=== PATIENT | female | born 1950 | race African-American/Black ===

== ENCOUNTER 2020-04-22 09:22 | Outpatient (REF) | payer MEDICARE, MEDICAID, SELFPAY ==
[2020-04-22 10:20] LABS: MANUAL DIFF FLAG NO
[2020-04-22 10:41] LABS: Basophils Percent Auto 0.7 % (0-2); Eosinophils Absolute Auto 0.1 X10*3/uL (0.0-0.4); Eosinophils Percent Auto 2.3 % (0-4); Hematocrit 40.6 % (37-47); Imm Gran Abs Auto 0.01 X10*3/uL (0.00-0.03); Imm Gran Pct Auto 0.2 % (0.0-0.4); Lymphocytes Percent Auto 46.4 % (20-40); Mean Corpuscular Hemoglobin 27.4 pg (27.0-33.0); Mean Corpuscular Volume 85.5 fL (80-98); Mean Platelet Volume 10.6 fL (9.4-12.3); Monocytes Absolute Auto 0.5 X10*3/uL (0.1-1.2); Monocytes Percent Auto 11.8 % (2-11); Neutrophils Absolute Auto 1.7 X10*3/uL (2.0-8.3); Neutrophils Percent Auto 38.6 % (45-73); Platelet Count 247 X10*3/uL (160-400); Red Blood Count 4.75 X10*6/uL (4.20-5.50); White Blood Count 4.4 X10*3/uL (4.8-10.8)
[2020-04-22 11:07] LABS: Albumin Level 4.2 g/dL (3.5-5.0); Anion Gap 13 (12-20); Blood Urea Nitrogen 15 mg/dL (9-16); Calcium 9.2 mg/dL (8.4-10.2); Carbon Dioxide 24 mmol/L (22-29); Chloride 107 mmol/L (96-108); Estimated Glomerular Filt Rate 43; Magnesium 1.9 mg/dL (1.6-2.6); Phosphorus 3.4 mg/dL (2.7-4.5); Potassium 4.4 mmol/l (3.3-5.1); Sodium 140 mmol/L (135-145)
[2020-04-22 11:17] LABS: Protein/Creatinine Ratio, Ur 0.05 (<0.2); Total Protein Urine Random 12 mg/dL (<12)
[2020-04-23 19:01] LABS: Calcium (PTHI) 9.7 mg/dL (8.6-10.4); PTHI 42 pg/mL (14-64)
== END 2020-04-22 09:23 | disposition home or self-care (01) ==
LOC: HO.10HDL 09:22
PROVIDERS: Visit Provider Internal Medicine Hypertension Specialist
DX: I12.9 Hypertensive chronic kidney disease with stage 1 through stage 4 chronic kidney disease, or unspecified chronic kidney disease (principal); N18.30 Chronic kidney disease, stage 3 unspecified
CPT/HCPCS: 36415; 80051; 82040; 82310; 82565; 83735; 83970; 84100; 84156; 84520; 85025

== ENCOUNTER 2020-07-06 07:59 | Outpatient (REF) | payer MEDICARE, MEDICAID, OTHER, SELFPAY ==
[2020-07-06 10:57] LABS: Alanine Aminotransferase 17 U/L (0-31); Albumin Level 4.2 g/dL (3.5-5.0); Alkaline Phosphatase 70 U/L (39-117); Anion Gap 15 (12-20); Aspartate Amino Transferase 17 U/L (5-31); Bilirubin Total 0.6 mg/dL (0.0-1.0); Blood Urea Nitrogen 17 mg/dL (9-16); Calcium 9.7 mg/dL (8.4-10.2); Carbon Dioxide 23 mmol/L (22-29); Chloride 105 mmol/L (96-108); Cholesterol 178 mg/dL; Estimated Glomerular Filt Rate 41; Glucose Fasting 101 mg/dL (60-99); HDL Cholesterol 44 mg/dL; LDL Cholesterol Calculated 114 mg/dl; Potassium 4.2 mmol/l (3.3-5.1); Sodium 139 mmol/L (135-145); Total Protein 7.7 g/dL (6.5-8.0); Triglycerides 103 mg/dL
[2020-07-06 11:19] LABS: Vitamin D 25-OH Total 35.4 ng/mL (>30)
== END 2020-07-06 08:00 | disposition home or self-care (01) ==
LOC: HO.10HDL 07:59
PROVIDERS: Visit Provider Internal Medicine
DX: E11.9 Type 2 diabetes mellitus without complications (principal); E55.9 Vitamin D deficiency, unspecified
CPT/HCPCS: 36415; 80053; 80061; 82306

== ENCOUNTER 2020-10-09 10:33 | Emergency (ER) | payer MEDICARE, MEDICAID, SELFPAY ==
--- NOTE | ~2020-10-09 | XR_ITS ---
EXAMINATION: RIGHT ANKLE AND RIGHT TIBIA AND FIBULA CLINICAL INFORMATION: Pain after fall COMPARISON: None TECHNIQUE: AP and lateral views of the right tibia and fibula and 3 views of the right ankle FINDINGS: AP and lateral views of the right tibia and fibula demonstrates a distal lateral malleolus avulsion fracture with distraction of fracture fragments by 2 mm. There is a large amount of associated soft tissue swelling present. No other fracture of the tibia or fibula identified. 3 views of the right ankle again demonstrate the avulsion fracture distal tip of the lateral malleolus with associated soft tissue swelling about the lower leg and ankle. There is sequela of previous injury about the distal medial malleolus. Ankle mortise appears intact however there does appear to be approximately 6 degrees of talar tilt without stress. No widening of the medial joint space is noted. There are calcaneal spurs sites of insertion of Achilles and plantar tendons. XR/XR ankle RT min 3V IMPRESSION: Avulsion fracture distal right lateral malleolus.
--- NOTE | ~2020-10-09 | XR_ITS ---
EXAMINATION: RIGHT ANKLE AND RIGHT TIBIA AND FIBULA CLINICAL INFORMATION: Pain after fall COMPARISON: None TECHNIQUE: AP and lateral views of the right tibia and fibula and 3 views of the right ankle FINDINGS: AP and lateral views of the right tibia and fibula demonstrates a distal lateral malleolus avulsion fracture with distraction of fracture fragments by 2 mm. There is a large amount of associated soft tissue swelling present. No other fracture of the tibia or fibula identified. 3 views of the right ankle again demonstrate the avulsion fracture distal tip of the lateral malleolus with associated soft tissue swelling about the lower leg and ankle. There is sequela of previous injury about the distal medial malleolus. Ankle mortise appears intact however there does appear to be approximately 6 degrees of talar tilt without stress. No widening of the medial joint space is noted. There are calcaneal spurs sites of insertion of Achilles and plantar tendons. XR/XR tibia fibula RT 2V IMPRESSION: Avulsion fracture distal right lateral malleolus.
[2020-10-09 10:42] VITALS: BP 164/95; PULSE 118; RESP 18; TEMP 36.9; O2SAT 97; BMI 31.6
--- NOTE | 2020-10-09 10:47 | ED_ITS ---
HPI - Extremity Injury (Lower) General Chief Complaint: Fall Stated Complaint: fall Time Seen by Provider: 10/09/20 10:44 Source: patient Mode of arrival: wheelchair Limitations: no limitations History of Present Illness HPI Narrative: Mrs. Dubois is a pleasant 70-year-old female she has medical history as noted below she presents via wheelchair with her significant other from triage with complaint of right ankle pain status post slip and fall. States she went out to take the trash out and lost her footing on the last step and injured her right ankle. She denies any prodromal symptoms. No other injuries, no recent illness. She is vaccinated for COVID-19. Did have a small coffee this morning and took her pills otherwise has not ate anything yet. MD complaint: other (Right ankle) Onset (ago): minute(s) Injury: Right: ankle Type of Injury: blunt Place: home Severity: moderate (With movement) Severity scale (1-10): 5 Exacerbating factors: weight bearing Context: direct blow Associated symptoms: swelling Other symptoms: none Treatments prior to arrival: other (Immobilization) Related Data Home Medications Medication Instructions Recorded Confirmed alprazolam 0.25 mg tablet 0.25 mg PO DAILY PRN 07/08/20 10/06/20 amlodipine 10 mg tablet 10 mg PO DAILY 07/08/20 10/06/20 aspirin 81 mg tablet,delayed 81 mg PO DAILY 07/08/20 10/06/20 release cholecalciferol (vitamin D3) 25 25 mcg PO DAILY 07/08/20 10/06/20 mcg (1,000 unit) capsule ezetimibe 10 mg tablet 10 mg PO DAILY 07/08/20 10/06/20 fluticasone propionate 50 2 spray INTRANASAL DAILY 07/08/20 10/06/20 mcg/actuation nasal spray,suspension spironolactone 25 mg tablet 25 mg PO DAILY 07/08/20 10/06/20 Previous Rx's Medication Instructions Recorded pravastatin 80 mg tablet 80 mg PO BEDTIME #90 tab 07/11/20 sennosides 8.6 mg-docusate sodium 1 tab-cap PO BID PRN #60 cap 10/06/20 50 mg capsule Allergies Allergy/AdvReac Type Severity Reaction Status Date / Time atorvastatin [Lipitor] Allergy Unknown Unknown Verified 06/25/20 13:38 lisinopril Allergy Unknown Unknown Verified 06/25/20 13:38 Review of Systems Review of Systems: Constitutional: No Weight loss, No Fever, No Chills, No Night Sweats, No Fatigue, No Malaise ENT/Mouth: No Hearing loss, No Ear Pain, No Nasal Congestion, No Sinus Pain, No Hoarseness, No sore throat, No Rhinorrhea, No Swallowing Difficulty Eyes: No Eye Pain, No Swelling, No Redness, No Foreign Body, No Discharge, No Vision Changes Cardiovascular: No Chest Pain, No SOB, No Dyspnea on Exertion, No Orthopnea, No Edema, No Palpitations Respiratory: No Cough, No Sputum, No Wheezing, No Smoke Exposure, No Dyspnea Gastrointestinal: No Nausea, No Vomiting, No Diarrhea, No Constipation, No abdominal Pain, No Hematochezia, No Melena Genitourinary: No Dysuria, No Urinary Frequency, No Hematuria, No Urinary Incontinence, No Urgency, No Flank Pain, No Urinary Flow Changes, No Hesitancy Musculoskeletal: No joint pain, No Myalgias, No Joint Swelling Skin: No Skin Lesions, No rash Neuro: No Weakness, No Numbness, No Paresthesias, No Loss of Consciousness, No Dizziness, No Headache Psych: No Social Issues Heme/Lymph: No Bruising, No Bleeding,No Lymphadenopathy Endocrine: No Polyuria, No Polydipsia, No Temperature Intolerance Yes all other systems are reviewed and are negative [facility] Past Medical History Medical History Anxiety Chronic kidney disease (CKD) stage G3a/A1, moderately decreased glomerular filtration rate (GFR) between 45-59 mL/min/1.73 square meter and albuminuria creatinine ratio less than 30 mg/g Hypercholesterolemia Hypertension Obesity (BMI 30-39.9) Type 2 diabetes mellitus with hyperglycemia Vitamin D deficiency Surgical History History of cataract surgery History of total hysterectomy Family History Family History (Updated 06/25/20 @ 13:39 by ADRIANA Morocho) Father No problems noted. Mother Diabetes Hypertension Stroke Daughter Liver cancer Social History Social History (Updated 10/06/20 @ 09:38 by Pauline Hendrickson CMA) Alcohol intake: never Smoking Status: Never smoker Use of substances other than those prescribed or required for medical reasons: No Advance Directives: No Advance Directives Information Provided: No Physical Exam Vital Signs: Vital Signs: Last Vital Signs Temp 98.4 F 10/09/20 10:42 Pulse 118 H 10/09/20 10:42 Resp 18 10/09/20 10:42 BP 164/95 H 10/09/20 10:42 Pulse Ox 97 10/09/20 10:42 Body Mass Index 31.6 Reviewed Const: Other: Grimaces only when touched at the right ankle and swelling removed. General: cooperative and healthy appearing; No acute distress or intoxicated appearing Nutritional Appearance: average body habitus Orientation/consciousness: patient oriented x3 HENMT: Head: Yes normal to inspection Ears: hearing grossly normal bilaterally Eyes: General: appearance normal, both eyes and all related structures Visual Mann: normal visual mann by confrontation Neck: Neck: Yes normal visual inspection, No positive Brudzinski's sign, No positive Kernig's sign and No tender Thyroid: Thyroid normal Chest: Chest palpation & inspection: normal inspection of the chest Resp: Effort & Inspection: normal respiratory effort Auscultation: clear to auscultation bilaterally Cardio: Jugular venous distension: no JVD Rhythm: regular rhythm Heart sounds: S1 normal heart sound present and S2 normal heart sound present GI: Inspection: Yes normal to inspection Palpation (GI): Soft to palpation Percussion: Yes normal to percussion Auscultation: normal bowel sounds : General: Yes no CVA tenderness Back/Spine/Pelvis: Back: no CVA tenderness Skin: General skin exam: no rashes or lesions noted Neuro: General: patient oriented x3 Extrem: General: Yes normal to inspection Ankle/foot/toe images: 1. Swelling, minimal deformity. Neurovascular intact. No compound type injury. No laceration or abrasion. Exam limited secondary to the acute injury/pain. Course Course Course Narrative: Ankle sprain with underlying avulsion fracture of the distal right lateral malleolus. Patient will be placed in a posterior short-leg splint crutches and follow-up with orthopedics. Skin is intact otherwise, neurovascularly intact. Feels comfortable plan stable for discharge. Home safety reviewed for proper crutch use. MDM - Extremity Injury (Lower) Differential Diagnosis Differential diagnosis: Likely ankle sprain and strain and ankle fracture; Unlikely acute internal derangement of knee, fracture of femur, fracture of hip and fracture of toe Medical Records Attestation: I reviewed the patient's medical records. Lab Data Attestation: I reviewed the patient's lab results. 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 There is a large amount of associated soft tissue swelling present. No other fracture of the tibia or fibula identified. 3 views of the right ankle again demonstrate the avulsion fracture distal tip of the lateral malleolus with associated soft tissue swelling about the lower leg and ankle. There is sequela of previous injury about the distal medial malleolus. Ankle mortise appears intact however there does appear to be approximately 6 degrees of talar tilt without stress. No widening of the medial joint space is noted. There are calcaneal spurs sites of insertion of Achilles and plantar tendons. XR/XR ankle RT min 3V IMPRESSION: Avulsion fracture distal right lateral malleolus. Dictated By:HEATHER MACARIO V MDSigned By:<Electronically signed by HEATHER MACARIO MD in OV>10/09/20 1232 DD/ 1044TD/TT: Patient Safety Officer: VASYL Discharge Plan Discharge Clinical Impression: Uses crutches Avulsion fracture of lateral malleolus Qualifiers: Encounter type: initial encounter Fracture type: closed Laterality: right Qualified Code(s): S82.61XA - Displaced fracture of lateral malleolus of right fibula, initial encounter for closed fracture Patient Disposition: Home, Self-Care Instructions: Ankle Fracture (ED), Crutch Instructions (ED), Splint Care (ED) Additional Instructions: Rest, ice, compress, elevated Prescriptions: No Action pravastatin 80 mg tablet 80 mg PO BEDTIME Qty: 90 RF: 1 cholecalciferol (vitamin D3) 25 mcg (1,000 unit) capsule 25 mcg PO DAILY RF: 0 fluticasone propionate 50 mcg/actuation spray,suspension 2 spray intranasal DAILY RF: 0 alprazolam 0.25 mg tablet 0.25 mg PO DAILY PRNRF: 0 aspirin [Adult Aspirin Regimen] 81 mg tablet,delayed release (DR/EC) 81 mg PO DAILY RF: 0 spironolactone 25 mg tablet 25 mg PO DAILY RF: 0 amlodipine 10 mg tablet 10 mg PO DAILY RF: 0 ezetimibe [Zetia] 10 mg tablet 10 mg PO DAILY RF: 0 Senna Plus 8.6-50 mg capsule 1 tab-cap PO BID PRN (Reason: constipation) Qty: 60 RF: 6 Referrals: Antonia Srivastava MD [Physician] - 1 week (Avulsion fracture distal right lateral malleolus. )
[2020-10-09] MEDS: Acetaminophen 325 MG TABLET 975 MG PO (11:15)
--- NOTE | 2020-10-09 11:16 | PC.NURSE ---
patient a%0x3, medicated for 9/10 rle pain, awaiting xray will continue to monitor
--- NOTE | 2020-10-09 11:53 | PC.NURSE ---
pt to xray
[2020-10-09 13:21] VITALS: BP 158/88; PULSE 101; RESP 18; TEMP 36.8; O2SAT 97
--- NOTE | 2020-10-09 13:22 | PC.NURSE ---
techs applying splint and teaching use of crutches.
== END 2020-10-09 13:28 | disposition home or self-care (01) ==
PROVIDERS: Emergency Provider Emergency Medicine; PCP Internal Medicine
DX: S82.61XA Displaced fracture of lateral malleolus of right fibula, initial encounter for closed fracture (principal); W01.0XXA Fall on same level from slipping, tripping and stumbling without subsequent striking against object, initial encounter; Y93.E9 Activity, other interior property and clothing maintenance; Y92.019 Unspecified place in single-family (private) house as the place of occurrence of the external cause; Y99.9 Unspecified external cause status
CPT/HCPCS: 29515; 73590; 73610; 99283; 99284

== ENCOUNTER 2020-10-18 06:10 | Outpatient (REF) | payer MEDICARE, MEDICAID, SELFPAY ==
--- NOTE | ~2020-10-18 | XR_ITS ---
EXAMINATION: XR ANKLE, RIGHT CLINICAL INFORMATION: Right ankle pain. COMPARISON: Right ankle 10/09/2020. TECHNIQUE: AP, lateral, and mortise views of the right ankle. FINDINGS: There is a known avulsion fracture tip of the lateral malleolus from 10/09/2020 with moderate lateral malleolar soft tissue swelling which has minimally improved. There is an old medial malleolar fracture with mild soft tissue swelling. The ankle mortise and subtalar joints are normal. There is an moderate-sized calcaneal heel and small retrocalcaneal enthesophytes. There is mild anterior ankle joint effusion. XR/XR ankle RT min 3V IMPRESSION: Recent avulsion fracture tip of lateral malleolus with moderate soft tissue swelling. The soft tissue swelling has slightly improved since 10/06/2020. There is an old avulsion fracture tip of medial malleolus with mild malleolar soft tissue swelling. No change in moderate calcaneal heel and small retrocalcaneal enthesophytes.
== END 2020-10-18 06:11 | disposition home or self-care (01) ==
LOC: HO.HOSX 06:10
PROVIDERS: Visit Provider Physician Assistant
DX: S82.891D Other fracture of right lower leg, subsequent encounter for closed fracture with routine healing (principal)
CPT/HCPCS: 73610; 99202

== ENCOUNTER 2021-01-06 08:07 | Outpatient (REF) | payer MEDICARE, MEDICAID, SELFPAY ==
[2021-01-06 09:19] LABS: Alanine Aminotransferase 10 U/L (0-31); Albumin Level 4.2 g/dL (3.5-5.0); Alkaline Phosphatase 89 U/L (39-117); Anion Gap 14 (12-20); Aspartate Amino Transferase 12 U/L (5-31); Bilirubin Total 0.6 mg/dL (0.0-1.0); Blood Urea Nitrogen 12 mg/dL (9-16); Calcium 9.9 mg/dL (8.4-10.2); Carbon Dioxide 21 mmol/L (22-29); Chloride 108 mmol/L (96-108); Cholesterol 140 mg/dL; Estimated Glomerular Filt Rate 53; Glucose Random 100 mg/dL (60-115); HDL Cholesterol 41 mg/dL; LDL Cholesterol Calculated 80 mg/dl; Potassium 4.3 mmol/L (3.3-5.1); Sodium 139 mmol/L (135-145); Total Protein 7.8 g/dL (6.5-8.0); Triglycerides 97 mg/dL
[2021-01-06 09:45] LABS: Free T4 (Free Thyroxine) 0.87 ng/dL (0.71-1.85); Thyroid Stimulating Hormone 1.72 uIU/mL (0.32-4.0)
== END 2021-01-06 08:08 | disposition home or self-care (01) ==
LOC: HO.LAB 08:07
PROVIDERS: Visit Provider Internal Medicine
DX: E11.65 Type 2 diabetes mellitus with hyperglycemia (principal); E78.00 Pure hypercholesterolemia, unspecified; N18.31 Chronic kidney disease, stage 3a
CPT/HCPCS: 36415; 80053; 80061; 84439; 84443

== ENCOUNTER 2021-01-25 08:14 | Outpatient (REF) | payer MEDICARE, OTHER, SELFPAY ==
--- NOTE | ~2021-01-25 | MM_ITS ---
EXAMINATION: MM SCREENING DIGITAL BREAST TOMOSYNTHESIS, BILATERAL CLINICAL INFORMATION: Screening. Asymptomatic. The lifetime risk of breast cancer based on the Tyrer-Cuzick Model is 6%. COMPARISON: Mammography: 01/20/2020, 01/13/2019, 12/25/2017 TECHNIQUE: Digital breast tomosynthesis is performed in both the craniocaudal and mediolateral oblique views along with computer-aided detection (CAD). Synthesized 2D images are generated from the tomosynthesis. FINDINGS: There are scattered areas of fibroglandular density (ACR BI-RADS breast composition Category b). There are no significant masses, abnormal calcifications, or other abnormalities. There is fine fibronodular parenchymal pattern with a small waxing and waning smooth nodularity as before. There is no interval dominant mass or architectural abnormality. No abnormal calcifications. The axilla and skin contours are unremarkable. No significant changes from prior exam. MM/MM tomosynthesis screening BI IMPRESSION: No mammographic evidence of malignancy. ASSESSMENT: BI-RADS 2: Benign RECOMMENDATION: Routine annual mammography screening. This patient's information was entered into a reminder system with a target due date for their next mammogram.
[2021-01-25 09:45] LABS: Anion Gap 12 (12-20); Blood Urea Nitrogen 12 mg/dL (9-16); Calcium 9.8 mg/dL (8.4-10.2); Carbon Dioxide 23 mmol/L (22-29); Chloride 110 mmol/L (96-108); Estimated Glomerular Filt Rate 52; Potassium 4.2 mmol/L (3.3-5.1); Sodium 141 mmol/L (135-145)
== END 2021-01-25 08:15 | disposition home or self-care (01) ==
LOC: HO.MAMMO 08:14
PROVIDERS: Absent Provider Internal Medicine Hypertension Specialist; PCP Internal Medicine; Visit Provider Internal Medicine
DX: Z12.31 Encounter for screening mammogram for malignant neoplasm of breast (principal); I12.9 Hypertensive chronic kidney disease with stage 1 through stage 4 chronic kidney disease, or unspecified chronic kidney disease; N18.9 Chronic kidney disease, unspecified
CPT/HCPCS: 36415; 77063; 77067; 80051; 82310; 82565; 84520

== ENCOUNTER 2021-12-16 10:32 | Day surgery (SDC) | payer MEDICARE, OTHER, SELFPAY ==
[2021-12-12 16:27] VITALS: BMI 31.9
[2021-12-13 09:20] VITALS: BMI 31.9
--- NOTE | 2021-12-15 09:55 | HO.ANESPROP2 ---
Documented by User: Jimena Arzate NP 12/15/21 09:55 HPI - Anesthesia Eval Consult details Narrative: 71yo F for Colonoscopy PMFSH Active Problems Active Problems: All Active Problems (Updated 08/11/21 @ 10:53 by Kalpana Campos MD) Avulsion fracture of right ankle (Acute) Generalized anxiety disorder (Acute) Constipation (Acute) Hypertension (Acute) Obesity (BMI 30-39.9) (Acute) Hypercholesterolemia (Acute) Chronic kidney disease (CKD) stage G3a/A1, moderately decreased glomerular filtration rate (GFR) between 45-59 mL/min/1.73 square meter and albuminuria creatinine ratio less than 30 mg/g (Acute) Type 2 diabetes mellitus with hyperglycemia (Acute) Past Medical History Medical History (Updated 08/11/21 @ 10:53 by Kalpana Campos MD) Adult general medical exam Ankle pain Avulsion fracture of right ankle Chronic kidney disease (CKD) stage G3a/A1, moderately decreased glomerular filtration rate (GFR) between 45-59 mL/min/1.73 square meter and albuminuria creatinine ratio less than 30 mg/g Hypercholesterolemia Hypertension Obesity (BMI 30-39.9) Type 2 diabetes mellitus with hyperglycemia Vitamin D deficiency Family History Family History Father No problems noted. Mother Diabetes Hypertension Stroke Daughter Liver cancer Surgical History Surgical History (Updated 01/12/21 @ 10:04 by TAI Howe) History of cataract surgery History of colonoscopy History of total hysterectomy Social History Social History (Updated 01/12/21 @ 09:46 by TAI Howe) Housing: Apartment Are you a primary career development associate to a significant other at home: No Do you presently have visiting nurse or other home services: No Alcohol intake: never Patient Tobacco Use Status: Never used Tobacco e-Cigarette/Vaping Use: Never Used Second Hand Smoke Exposure: No Have you been hit, kicked, punched, or otherwise hurt by someone within the past year? If so, by whom?: No Are you DNR?: No Advance Directives: No Advance Directives Information Provided: Yes Advance Directives on File: No Recently lost weight without trying: No Current occupational status: retired Meds Allergies Allergy/AdvReac Type Severity Reaction Status Date / Time atorvastatin [Lipitor] Allergy Unknown Unknown Verified 08/11/21 09:50 lisinopril Allergy Unknown Unknown Verified 08/11/21 09:50 Home Medications Medication Instructions Recorded Confirmed Last Taken Type alprazolam 0.25 mg tablet 0.25 mg PO DAILY PRN Anxiety 07/08/20 12/13/21 Unknown History cholecalciferol (vitamin D3) 25 25 mcg PO DAILY 07/08/20 12/13/21 Unknown History mcg (1,000 unit) capsule fluticasone propionate 50 2 spray intranasal DAILY PRN Nasal 07/08/20 12/13/21 Unknown History mcg/actuation nasal Congestion spray,suspension Exam Exam Date and Time: December 15, 2021 0955 Height,Weight and Vital Signs: Height 5 ft 7 in Weight 92.533 kg Assessment and Plan Assessment Anesthesia Assessment: Chart Reviewed Documented by User: Kim Bernal MD 12/16/21 12:48 [facility] Active Problems Active Problems: All Active Problems (Updated 08/11/21 @ 10:53 by Kalpana Campos MD) Avulsion fracture of right ankle (Acute) Generalized anxiety disorder (Acute) Constipation (Acute) Hypertension (Acute) Obesity (BMI 30-39.9) (Acute) Hypercholesterolemia (Acute) Chronic kidney disease (CKD) stage G3a/A1, moderately decreased glomerular filtration rate (GFR) between 45-59 mL/min/1.73 square meter and albuminuria creatinine ratio less than 30 mg/g (Acute) Type 2 diabetes mellitus with hyperglycemia (Acute) Snores but denies SHAMA. Never had sleep study Past Medical History Medical History (Updated 08/11/21 @ 10:53 by Kalpana Campos MD) Adult general medical exam Ankle pain Avulsion fracture of right ankle Chronic kidney disease (CKD) stage G3a/A1, moderately decreased glomerular filtration rate (GFR) between 45-59 mL/min/1.73 square meter and albuminuria creatinine ratio less than 30 mg/g Hypercholesterolemia Hypertension Obesity (BMI 30-39.9) Type 2 diabetes mellitus with hyperglycemia Vitamin D deficiency Family History Family History Father No problems noted. Mother Diabetes Hypertension Stroke Daughter Liver cancer Family history of problems with anesthesia: No Surgical History Surgical History (Updated 01/12/21 @ 10:04 by TAI Howe) History of cataract surgery History of colonoscopy History of total hysterectomy History of Problems with Anesthesia: No Social History Social History (Updated 01/12/21 @ 09:46 by TAI Howe) Housing: Apartment Are you a primary career development associate to a significant other at home: No Do you presently have visiting nurse or other home services: No Alcohol intake: never Patient Tobacco Use Status: Never used Tobacco e-Cigarette/Vaping Use: Never Used Second Hand Smoke Exposure: No Have you been hit, kicked, punched, or otherwise hurt by someone within the past year? If so, by whom?: No Are you DNR?: No Advance Directives: No Advance Directives Information Provided: Yes Advance Directives on File: No Recently lost weight without trying: No Current occupational status: retired [employer] Allergies Allergy/AdvReac Type Severity Reaction Status Date / Time atorvastatin [Lipitor] Allergy Unknown Unknown Verified 08/11/21 09:50 lisinopril Allergy Unknown Unknown Verified 08/11/21 09:50 Home Medications Medication Instructions Recorded Confirmed Last Taken Type alprazolam 0.25 mg tablet 0.25 mg PO DAILY PRN Anxiety 07/08/20 12/13/21 Unknown History cholecalciferol (vitamin D3) 25 25 mcg PO DAILY 07/08/20 12/13/21 Unknown History mcg (1,000 unit) capsule fluticasone propionate 50 2 spray intranasal DAILY PRN Nasal 07/08/20 12/13/21 Unknown History mcg/actuation nasal Congestion spray,suspension Exam Height,Weight and Vital Signs: Height 5 ft 7 in Weight 92.533 kg Vital Signs Temp Pulse Resp BP Pulse Ox O2 Del Method 12/16/21 12:25 96.7 F L 103 H 16 140/89 H 97 Room Air Pertinent Lab Results Pertinent Lab Results: Lab Results 12/16/21 Range/Units 12:30 POC Glucose 87 (60-115) mg/dL Airway Mallampati Class: III TM Dist: >3cm Neck ROM: Full Partial: Upper Loose/Missing/Broken Teeth: No (No broken or loose per patient) Heart: RRR Lungs: CTAB Assessment and Plan Assessment Anesthesia Assessment: Anesthesia Plan Discussed Final Anesthetic Review Family History of Problems with Anesthesia: No History of Problems with Anesthesia: No NPO: Yes ASA Class: III Final Preanesthetic Review: No Changes in Pt Med Stat, Meds/Allgs Chart Reviewed, Consent Obtained/Reviewed and Anes Risks/Benef Reviewed Patient Risk: Intermediate Procedure Risk: Low Assessment/Block/Sedation in SS: Assess/Block/Sedation-SS Anesthetic Plan Anesthetic Plan: MAC: Disposition: Standard PACU
[2021-12-16 12:25] VITALS: BP 140/89; PULSE 103; RESP 16; TEMP 35.9; O2SAT 97
[2021-12-16] MEDS: Lactated Ringers 1,000 ML 100 ML IVCONT (12:34)
[2021-12-16 12:38] LABS: Glucose, Whole Blood 87 mg/dL (60-115)
--- NOTE | 2021-12-16 12:47 | MHC.SHP ---
Pre-Procedural Eval Section A Date of Service: 12/16/21 The patient is an INPATIENT: No Changes since office visit: No Cold of Flu in the past 2 weeks, No New Medical Problems, No Changes in Medication and No Patient answered all questions The History & Physical has been completed within 30 days and I have reviewed it.: Yes Section B Chief Complaint: screening Allergies: Allergies Allergy/AdvReac Type Severity Reaction Status Date / Time atorvastatin [Lipitor] Allergy Unknown Unknown Verified 08/11/21 09:50 lisinopril Allergy Unknown Unknown Verified 08/11/21 09:50 Plan I have reviewed the history and physical and performed a pertinent physical examination on my patient. No changes have occurred unless specified.
[2021-12-16 13:19] VITALS: BP 124/77; PULSE 128; RESP 16; TEMP 36.5; O2SAT 96
[2021-12-16 13:34] VITALS: BP 130/85; PULSE 88; RESP 18; TEMP 36.6; O2SAT 96
--- NOTE | 2021-12-16 13:47 | P.BOP_ITS ---
Brief Operative Note Date of Service: 12/16/21 Pre-op diagnosis: screening Post-op diagnosis: same Procedure: colonoscopy Surgeon: Ashkan Antunez Anesthesia: MAC Was an Ceramic Design Engineer used for this Procedure?: No Estimated blood loss (mL): 2 Pathology: other Condition: stable Disposition: PACU
--- NOTE | 2021-12-16 22:41 | OP_ITS ---
SURGEON: Ashkan Antunez MD INDICATIONS: Colon cancer screening. PREOPERATIVE DIAGNOSIS: POSTOPERATIVE DIAGNOSIS: PROCEDURE PERFORMED: ESTIMATED BLOOD LOSS: COMPLICATIONS: ANESTHESIA: ASSISTANTS: SPECIMENS: PROCEDURE: Colonoscopy to the cecum with biopsy. MEDICATIONS: Monitored anesthesia care. DESCRIPTION OF PROCEDURE: History and physical performed. The risks and benefits of the procedure were explained to the patient. Informed consent was obtained. The patient was placed in left lateral decubitus position. A digital rectal exam was performed and was found to be normal. The Olympus pediatric video colonoscope was introduced into the rectum and advanced to the cecum without difficulty. The cecum was identified by transillumination, palpation, and identification of the ileocecal valve. Examination was performed. The scope was removed. She tolerated the procedure well and was taken to recovery area in stable condition. FINDINGS: The terminal ileum was not examined. The visualized colonic mucosa was normal. There was some stool coating mucosa limiting sensitivity examination for detection of small polyps. A single polyp measuring less than 5 mm was identified in the right colon. This was removed with a biopsy forceps. No other polyps were identified. There was mild diverticulosis of the sigmoid. Retroflexed examination showed internal hemorrhoids. IMPRESSION: Colon polyp. RECOMMENDATIONS: Follow up the biopsy results. MD NAGA Dailey/TREVOR / [id number]
== END 2021-12-16 14:01 | disposition home or self-care (01) ==
PROVIDERS: PCP Internal Medicine; Visit Provider Internal Medicine Gastroenterology
PROC: 0DJD8ZZ Inspection of Lower Intestinal Tract, Via Natural or Artificial Opening Endoscopic (ICD-10-PCS; CPT 45378; principal; 2021-12-16 12:20)
DX: Z12.11 Encounter for screening for malignant neoplasm of colon (principal); Z86.010 Personal history of colon polyps; D12.2 Benign neoplasm of ascending colon; K57.30 Diverticulosis of large intestine without perforation or abscess without bleeding; K64.8 Other hemorrhoids; K59.01 Slow transit constipation; E78.00 Pure hypercholesterolemia, unspecified; E11.22 Type 2 diabetes mellitus with diabetic chronic kidney disease; I12.9 Hypertensive chronic kidney disease with stage 1 through stage 4 chronic kidney disease, or unspecified chronic kidney disease; N18.31 Chronic kidney disease, stage 3a; Z79.82 Long term (current) use of aspirin; Z79.899 Other long term (current) drug therapy; Z88.8 Allergy status to other drugs, medicaments and biological substances
CPT/HCPCS: 45380; 82947; 88305

== ENCOUNTER 2022-01-26 10:22 | Outpatient (REF) | payer MEDICARE, OTHER, SELFPAY ==
--- NOTE | ~2022-01-26 | MM_ITS ---
EXAMINATION: MM SCREENING DIGITAL BREAST TOMOSYNTHESIS, BILATERAL CLINICAL INFORMATION: Screening. Asymptomatic. The lifetime risk of breast cancer based on the Tyrer-Cuzick Model is 5%. COMPARISON: Mammography: 01/25/2021, 01/20/2020 TECHNIQUE: Digital breast tomosynthesis is performed in both the craniocaudal and mediolateral oblique views along with computer-aided detection (CAD). Synthesized 2D images are generated from the tomosynthesis. FINDINGS: There are scattered areas of fibroglandular density (ACR BI-RADS breast composition Category b). There is fine fibronodular parenchymal pattern similar to prior exams. No architectural abnormality or significant mass. Smooth nodule just under 5 mm central left breast mid depth is stable. There are scattered bilateral predominantly coarse calcifications. The axilla and skin contours are unremarkable. MM/MM tomosynthesis screening BI IMPRESSION: No mammographic evidence of malignancy. ASSESSMENT: BI-RADS 2: Benign RECOMMENDATION: Routine annual mammography screening. This patient's information was entered into a reminder system with a target due date for their next mammogram.
--- NOTE | ~2022-01-26 | MM_ITS ---
EXAMINATION: BONE DENSITOMETRY CLINICAL INDICATION: Asymptomatic menopausal state. COMPARISON: Previous BD dated 08/12/2019 and baseline BD dated 11/12/2015. TECHNIQUE: Using a Q[employer]ure DXA System (software version: 13.1) manufactured by [employer], dual-energy x-ray absorptiometry was performed of the lumbar spine and left hip. The images are of good technical quality. Summary results are attached. FINDINGS: AP SPINE L1-L4: Current: BMD 1.273 g/cm2, Z-score 0.9, T-score 0.8, normal, 3.8% increase from previous, 4.7% increase from baseline (<5% change is not significant). Prior: BMD 1.226 g/cm2. Baseline: BMD 1.216 g/cm2. LEFT FEMUR, NECK: Current: BMD 0.991 g/cm2, Z-score 0.0, T-score -0.3, normal. Prior: BMD 0.961 g/cm2. Baseline: BMD 0.932 g/cm2. LEFT FEMUR, TOTAL: Current: BMD 1.036 g/cm2, Z-score 0.2, T-score 0.2, normal, 2.5% increase from previous, 2.0% increase from baseline (<5% change is not significant). Prior: BMD 1.011 g/cm2. Baseline: BMD 1.016 g/cm2. IDENTIFIED RISK FACTORS: Menopause, left oophorectomy, hysterectomy, history of fracture (adult). HISTORY OF FRACTURE: Ankle. MEDICATIONS: Vitamin D. MM/XR DEXA axial skeleton IMPRESSION: 1. DIAGNOSIS: Normal bone density based on the lowest T-score value of -0.3 in the femoral neck applying World Health Organization criteria. 2. 10-YEAR FRACTURE RISK PREDICTION, FRAX: According to the guidelines, FRAX calculation should only be performed on patients in the osteopenia bone density category. Therefore, FRAX was not performed on this patient. 3. Treatment Recommendations: NOF guidelines recommend consideration for treatment in postmenopausal women and men age 50 and older presenting with the following: -A hip or vertebral (clinical or morphometric) fracture. -T-score less than or equal to -2.5 at the femoral neck or spine after appropriate evaluation to exclude secondary causes. -Low bone mass at the hip or spine and a 10-year fracture probability by FRAX of greater than or equal to 3% for hip fracture or greater than or equal to 20% for major osteoporotic fracture based on the [place] adapted WHO algorithm. 4. Other Recommendations: All treatment decisions require clinical judgment and consideration of individual patient factors, including patient preferences, comorbidities, previous drug use, risk factors not captured in the FRAX model (e.g. frailty, falls, vitamin D deficiency, increased bone turnover, interval significant decline in bone density) and possible under or overestimation of fracture risk by FRAX. FUTURE SCAN RECOMMENDATION: People with diagnosed cases of osteoporosis or at high risk for fracture should have regular bone mineral density tests. For patients eligible for Medicare, routine testing is allowed once every 2 years. The testing frequency can be increased to one year for patients who have rapidly progressing disease, those who are receiving or discontinuing medical therapy to restore bone mass, or have additional risk factors.
== END 2022-01-26 10:23 | disposition home or self-care (01) ==
LOC: HO.MAMMO 10:22
PROVIDERS: PCP Internal Medicine; Visit Provider Internal Medicine
DX: Z12.31 Encounter for screening mammogram for malignant neoplasm of breast (principal); Z78.0 Asymptomatic menopausal state; Z90.721 Acquired absence of ovaries, unilateral; Z90.710 Acquired absence of both cervix and uterus
CPT/HCPCS: 77063; 77067; 77080

== ENCOUNTER 2022-03-14 08:13 | Outpatient (REF) | payer MEDICARE, OTHER, SELFPAY ==
[2022-03-14 08:26] LABS: MANUAL DIFF FLAG NO
[2022-03-14 08:48] LABS: Basophils Percent Auto 0.6 % (0-2); Eosinophils Absolute Auto 0.1 X10*3/uL (0.0-0.4); Hematocrit 40.2 % (37.0-47.0); Hemoglobin 13.1 g/dl (12.0-16.0); Imm Gran Abs Auto 0.01 X10*3/uL (0.00-0.03); Imm Gran Pct Auto 0.2 % (0.0-0.4); Lymphocytes Absolute Auto 2.5 X10*3/uL (1.2-4.9); Lymphocytes Percent Auto 49.1 % (20-40); Mean Corpuscular HGB Conc 32.6 g/dl (31.0-35.0); Mean Corpuscular Hemoglobin 27.4 pg (27.0-33.0); Mean Corpuscular Volume 84.1 fL (80.0-98.0); Mean Platelet Volume 9.9 fL (9.4-12.3); Monocytes Absolute Auto 0.5 X10*3/uL (0.1-1.2); Monocytes Percent Auto 9.6 % (2-11); Neutrophils Percent Auto 38.5 % (45-73); Platelet Count 260 X10*3/uL (160-400); Red Blood Count 4.78 X10*6/uL (4.20-5.50); Red Cell Distribution Width 14.1 % (11.0-16.0); White Blood Count 5.1 X10*3/uL (4.8-10.8)
[2022-03-14 08:55] LABS: Estimated Average Glucose 137 mg/dL; Hemoglobin A1c % 6.4 %
[2022-03-14 09:22] LABS: Creatinine Urine 181.31 mg/dL; Microalbum/Creatinine Ratio Ur 12.6 ug/mg cr
[2022-03-14 09:23] LABS: Alanine Aminotransferase 29 U/L (0-31); Albumin Level 4.2 g/dL (3.5-5.0); Alkaline Phosphatase 84 U/L (39-117); Anion Gap 15 (12-20); Aspartate Amino Transferase 31 U/L (5-31); Bilirubin Total 0.6 mg/dL (0.0-1.0); Blood Urea Nitrogen 15 mg/dL (9-16); Calcium 9.5 mg/dL (8.4-10.2); Carbon Dioxide 24 mmol/L (22-29); Chloride 106 mmol/L (96-108); Cholesterol 173 mg/dL; Estimated Glomerular Filt Rate > 60; Glucose Random 129 mg/dL (60-115); HDL Cholesterol 42 mg/dL; LDL Cholesterol Calculated 109 mg/dl; Potassium 4.4 mmol/L (3.3-5.1); Sodium 141 mmol/L (135-145); Total Protein 7.7 g/dL (6.5-8.0); Triglycerides 112 mg/dL
[2022-03-14 09:30] LABS: Free T4 (Free Thyroxine) 0.93 ng/dL (0.71-1.85); Vitamin D 25-OH Total 36.5 ng/mL (>30)
[2022-03-14 10:06] LABS: Folate 6.9 ng/mL (> or = 4.0); Vitamin B12 421 pg/mL (200-900)
== END 2022-03-14 08:14 | disposition home or self-care (01) ==
LOC: HO.LAB 08:13
PROVIDERS: PCP Internal Medicine; Visit Provider Internal Medicine
DX: E11.65 Type 2 diabetes mellitus with hyperglycemia (principal); E78.00 Pure hypercholesterolemia, unspecified
CPT/HCPCS: 36415; 80053; 80061; 82043; 82306; 82607; 82746; 83036; 84439; 84443; 85025

== ENCOUNTER 2022-07-14 10:07 | Outpatient (REF) | payer MEDICARE, OTHER, SELFPAY ==
[2022-07-14 11:23] LABS: Anion Gap 12 (12-20); Blood Urea Nitrogen 10 mg/dL (9-16); Calcium 9.8 mg/dL (8.4-10.2); Carbon Dioxide 24 mmol/L (22-29); Chloride 108 mmol/L (96-108); Estimated Glomerular Filt Rate > 60; Potassium 3.8 mmol/L (3.3-5.1); Sodium 140 mmol/L (135-145)
== END 2022-07-14 10:08 | disposition home or self-care (01) ==
LOC: HO.10HDL 10:07
PROVIDERS: Visit Provider Internal Medicine Hypertension Specialist
DX: I12.9 Hypertensive chronic kidney disease with stage 1 through stage 4 chronic kidney disease, or unspecified chronic kidney disease (principal); N18.9 Chronic kidney disease, unspecified
CPT/HCPCS: 36415; 80051; 82310; 82565; 84520

== ENCOUNTER 2023-02-02 07:52 | Outpatient (REF) | payer MEDICARE, OTHER, SELFPAY ==
--- NOTE | ~2023-02-02 | MM_ITS ---
EXAMINATION: MM SCREENING DIGITAL BREAST TOMOSYNTHESIS, BILATERAL CLINICAL INFORMATION: Screening. Asymptomatic. COMPARISON: Mammography: This study is compared with prior exams dating back to 2018. TECHNIQUE: Digital breast tomosynthesis is performed in both the craniocaudal and mediolateral oblique views along with computer-aided detection (CAD). Synthesized 2D images are generated from the tomosynthesis. FINDINGS: There are scattered areas of fibroglandular density (ACR BI-RADS breast composition Category b). At the inferior aspect of the right breast, there is an asymmetry for which additional mammographic imaging is advised. In the left breast, there are no significant masses, abnormal calcifications, or other abnormalities. MM/MM tomosynthesis screening BI IMPRESSION: Asymmetry of the right breast warrants additional mammographic imaging. No mammographic signs of malignancy left breast. ASSESSMENT: BI-RADS BI-RADS 0 - Incomplete: Needs additional Imaging. RECOMMENDATION: 1. Additional views of the right breast 2. Targeted ultrasound if warranted after review of the additional views. 3. Radiology department staff will contact the patient for additional imaging. Additional Imaging required This examination should not preclude the clinical evaluation of a suspicious palpable abnormality. This patient's information was entered into a reminder system with a target due date for their next mammogram.
== END 2023-02-02 07:53 | disposition home or self-care (01) ==
LOC: HO.MAMMO 07:52
PROVIDERS: Visit Provider Internal Medicine
DX: Z12.31 Encounter for screening mammogram for malignant neoplasm of breast (principal); E11.65 Type 2 diabetes mellitus with hyperglycemia; E78.00 Pure hypercholesterolemia, unspecified
CPT/HCPCS: 36415; 77063; 77067; 80053; 80061; 82043; 82306; 82607; 82728; 82746; 83036; 84439; 84443; 85025

== ENCOUNTER → 2023-02-02 08:00 | Outpatient (BNV) | payer MEDICARE, MEDICAID, SELFPAY | PROVIDERS: Visit Provider Radiology Diagnostic Radiology | DX: Z12.31 Encounter for screening mammogram for malignant neoplasm of breast (principal) | CPT/HCPCS: 77063; 77067 ==

== ENCOUNTER 2023-02-02 08:30 | Outpatient (REF) | payer MEDICARE, OTHER, SELFPAY ==
[2023-02-02 10:18] LABS: MANUAL DIFF FLAG NO
[2023-02-02 10:23] LABS: Basophils Absolute Auto 0.1 X10*3/uL (0.0-0.2); Basophils Percent Auto 1.5 % (0-2); Eosinophils Absolute Auto 0.1 X10*3/uL (0.0-0.4); Hemoglobin 13.1 g/dl (12.0-16.0); Imm Gran Abs Auto 0.01 X10*3/uL (0.00-0.03); Imm Gran Pct Auto 0.2 % (0.0-0.4); Lymphocytes Absolute Auto 1.9 X10*3/uL (1.2-4.9); Mean Corpuscular Hemoglobin 27.3 pg (27.0-33.0); Mean Corpuscular Volume 85.6 fL (80.0-98.0); Mean Platelet Volume 10.4 fL (9.4-12.3); Monocytes Absolute Auto 0.4 X10*3/uL (0.1-1.2); Monocytes Percent Auto 10.7 % (2-11); Neutrophils Absolute Auto 1.6 x10*3/uL (2.0-8.3); Neutrophils Percent Auto 38.6 % (45-73); Platelet Count 251 X10*3/uL (160-400); Red Blood Count 4.79 X10*6/uL (4.20-5.50); Red Cell Distribution Width 14.1 % (11.0-16.0)
[2023-02-02 10:37] LABS: Estimated Average Glucose 120 mg/dL; Hemoglobin A1c % 5.8 %
[2023-02-02 10:54] LABS: Creatinine Urine 162.34 mg/dL; Microalbum/Creatinine Ratio Ur 17.2 ug/mg cr
[2023-02-02 10:55] LABS: Alanine Aminotransferase 14 U/L (0-31); Albumin Level 4.2 g/dL (3.5-5.0); Alkaline Phosphatase 69 U/L (39-117); Anion Gap 11 (12-20); Aspartate Amino Transferase 16 U/L (5-31); Bilirubin Total 0.5 mg/dL (0.0-1.0); Blood Urea Nitrogen 15 mg/dL (9-16); Calcium 9.7 mg/dL (8.4-10.2); Carbon Dioxide 23 mmol/L (22-29); Chloride 111 mmol/L (96-108); Cholesterol 167 mg/dL; Estimated Glomerular Filt Rate 53; Glucose Random 98 mg/dL (60-115); HDL Cholesterol 41 mg/dL; LDL Cholesterol Calculated 110 mg/dl; Potassium 3.8 mmol/L (3.3-5.1); Sodium 141 mmol/L (135-145); Triglycerides 83 mg/dL
[2023-02-02 11:13] LABS: Ferritin 92 ng/mL (10-250); Free T4 (Free Thyroxine) 0.82 ng/dL (0.71-1.85); Vitamin D 25-OH Total 42.4 ng/mL (>30)
[2023-02-02 11:24] LABS: Folate 6.5 ng/mL (> or = 4.0); Vitamin B12 594 pg/mL (200-900)
== END 2023-02-02 08:31 | disposition home or self-care (01) ==
LOC: HO.10HDL 08:30
PROVIDERS: Visit Provider Internal Medicine
DX: Z13.89 Encounter for screening for other disorder (principal)
CPT/HCPCS: 36415; 80053; 80061; 82043; 82306; 82607; 82728; 82746; 83036; 84439; 84443; 85025

== ENCOUNTER 2023-02-07 14:18 | Outpatient (REF) | payer MEDICARE, OTHER, SELFPAY ==
--- NOTE | ~2023-02-07 | US_ITS ---
EXAMINATION: MM DIAGNOSTIC DIGITAL BREAST TOMOSYNTHESIS, RIGHT US BREAST LIMITED, RIGHT MAMMOGRAPHY: CLINICAL INFORMATION: Follow-up for one view asymmetry inferior right breast seen on screening examination MLO view. COMPARISON: Mammography: 02/02/2023, 01/26/2022, and dating back to 2013. TECHNIQUE: Digital breast tomosynthesis is performed of the right breast in the full-field digital 3-D right mediolateral view, as well as spot compression 3-D right MLO views, both large and small paddle. Computer-aided detection (CAD). Synthesized 2D images are generated from the tomosynthesis. FINDINGS: There are scattered areas of fibroglandular density (ACR BI-RADS breast composition Category b). The 1 view asymmetry on the inferior right breast largely effaces on spot compression views and on the mediolateral view, suggesting overlapping tissue artifact/summation artifact. There is otherwise a stable nodular pattern of parenchymal with underlying right retroareolar duct ectasia, however no suspicious masses, calcifications, or areas of architectural distortion are identified. There are benign vascular calcifications. ULTRASOUND: CLINICAL INFORMATION: Evaluate one view asymmetry inferior right breast seen on screening examination MLO view. COMPARISON: Screening mammography 02/02/2023. No prior ultrasound. TECHNIQUE: Targeted sonographic evaluation of the right breast was performed using a high frequency linear transducer. Selected archived documentation. FINDINGS: RIGHT BREAST: There is a mixture of fatty and fibroglandular tissue. No suspicious mass is seen. There is no pathologic acoustic shadowing. No cystic abnormality noted. US/US breast RT limited mamm only IMPRESSION: No persistent findings suspicious for malignancy. Recommend patient return to routine annual screening mammography. OVERALL ASSESSMENT: Mammography: BI-RADS 2 - Benign Findings Ultrasound: BI-RADS 2 - Benign Findings RECOMMENDATION: 1 year F/U Results were provided to the patient at time of visit by the technologist. This patient's information was entered into a reminder system with a target due date for their next mammogram.
== END 2023-02-07 14:19 | disposition home or self-care (01) ==
LOC: HO.MAMMO 14:18
PROVIDERS: PCP Internal Medicine; Visit Provider Internal Medicine
DX: N64.89 Other specified disorders of breast (principal)
CPT/HCPCS: 76642; 77061; 77065

== ENCOUNTER → 2023-02-07 14:30 | Outpatient (BNV) | payer MEDICARE, MEDICAID, SELFPAY | PROVIDERS: PCP Internal Medicine; Visit Provider Radiology Diagnostic Radiology | DX: R92.8 Other abnormal and inconclusive findings on diagnostic imaging of breast (principal) | CPT/HCPCS: 76642; 77061; 77065; G0279 ==

== ENCOUNTER 2023-03-05 10:33 | Outpatient (AMB) | payer MEDICARE, SELFPAY ==
[2023-03-05 10:34] VITALS: BP 138/78; PULSE 88; O2SAT 97; BMI 30.7
--- NOTE | 2023-03-05 10:34 | A.OFFPC_ITS ---
Vital Signs 03/05/23 10:34 Height 5 ft 7 in Weight 196 lb BMI 30.7 BP 138/78 Blood Pressure Location Lt brachial Position Sitting Pulse 88 Pulse Source Pulse Oximeter Pulse Oximetry (%) 97 Oxygen Delivery Method Room Air Intake Visit Reasons: DM Intake Note: Patient here for a follow up DM Starch Crab Required: No Accompanied by: Self / Same As Patient Allergies atorvastatin [Lipitor] Allergy (Unknown, Verified 03/05/23 10:36) Unknown lisinopril Allergy (Unknown, Verified 03/05/23 10:36) Unknown Tobacco use date assessed: 08/31/22 Fall risk assessment: No Falls in past year Last assessed Fall Risk: 03/05/23 Dental Screening Dental Screen Date: 03/05/23 Did you have a dental visit in the last 12 months?: No Did you have a dental problem in the last 6 months where you did not have access to dental care?: No Was dental information given to patient?: Patient has dentist HPI DM HPI Details 73-year-old obese female with diabetes m ellitus chronic kidney disease hypercholesterolemia hypertension generalized anxiety disorder last seen in August 2022. Patient was advised blood work and is here for follow-up. Colonoscopy up-to-date December 2021 tubular adenoma 5 years, mammograms up-to-date bone density is up-to-date. Patient follows up with Nephrology last seen in June diagnosis of hypertensive chronic kidney disease . [facility] Medical History (Updated 03/05/23 @ 11:16 by Kalpana Campos MD) Adult general medical exam Avulsion fracture of right ankle Ankle pain Hypertension Obesity (BMI 30-39.9) Hypercholesterolemia Chronic kidney disease (CKD) stage G3a/A1, moderately decreased glomerular filtration rate (GFR) between 45-59 mL/min/1.73 square meter and albuminuria creatinine ratio less than 30 mg/g Type 2 diabetes mellitus with hyperglycemia Vitamin D deficiency Surgical History History of colonoscopy History of cataract surgery History of total hysterectomy Family History Father No problems noted. Mother Diabetes Hypertension Stroke Daughter Liver cancer Social History Housing: Apartment Are you a primary ambulatory care coordinator to a significant other at home: No Do you presently have visiting nurse or other home services: No Alcohol intake: never Patient Tobacco Use Status: Never used Tobacco e-Cigarette/Vaping Use: Never Used Second Hand Smoke Exposure: No service: No Current occupational status: retired Cognitive needs: No Hearing needs: No Vision needs: Yes Questionnaire PHQ-9 Over the last 2 weeks, how often have you been bothered by any of the following problems? 1. Little interest or pleasure in doing things: not at all 2. Feeling down, depressed, or hopeless: not at all 3. Trouble falling or staying asleep, or sleeping too much: not at all 4. Feeling tired or having little energy: not at all 5. Poor appetite or overeating: not at all 6. Feeling bad about yourself - or that you are a failure or have let yourself o r your family down: not at all 7. Trouble concentrating on things, such as reading the newspaper or watching television: not at all 8. Moving or speaking so slowly that other people could have noticed. Or the opposite - being so fidgety or restless that you have been moving around a lot more than usual: not at all 9. Thoughts that you would be better off or of hurting yourself in some way: not at all Total score: 0 Depression Screening Interpretation: Negative Source: Developed by Drs. Reji Anaya, Carly Smith, Bandar De La Cruz and colleagues, with an educational inderjit from [employer]. Thrive Questionnaire Date Thrive assessed: 08/31/22 MAME-7 AMB Questionnaire MAME-7 Date MAME - 7 assessed: 03/05/23 Feeling nervous, anxious, or on edge: 0 = Not at all Not being able to stop or control worryin = Not at all Worrying too much about different things: 0 = Not at all Trouble relaxin = Not at all Being so restless that it is hard to sit still: 0 = Not at all Becoming easily annoyed or irritable: 0 = Not at all Feeling afraid as if something awful might happen: 0 = Not at all Total MAME-7 score (0-4 normal; 5-9 mild; 10-14 moderate; 15-21 severe): 0 Source: Developed by Carly Haskins B.W. Luis, Bandar De La Cruz and colleagues, with an educational inderjit from [employer]. Physical exam (Primary Care) Vital Signs: Last Vital Signs Pulse 88 03/05/23 10:34 BP 138/78 03/05/23 10:34 Pulse Ox 97 03/05/23 10:34 Oxygen Delivery Method Room Air 03/05/23 10:34 BMI result Body Mass Index 30.7 Tobacco/Smoking Status: Tobacco use Status Tobacco use date assessed 08/31/22 03/05/23 10:40 Patient Tobacco Use Status Never used Tobacco 03/05/23 10:40 e-Cigarette/Vaping Use Never Used 03/05/23 10:40 PHQ-9: PHQ-9 Score PHQ-9: Total score 0 03/05/23 10:40 Depression Screening Interpretation: Negative Thrive Assessment: Date of Thrive Assessment Date Thrive assessed 08/31/22 03/05/23 10:40 Const General: alert; No acute distress Eyes Conjunctivae: conjunctivae normal Resp Auscultation: clear to auscultation bilaterally Cardio Rate: regular rate Rhythm: regular rhythm GI Inspection: Yes normal to inspection Extrem General: Yes normal to inspection and No edema Assessment and Plan Assessment & Plan (1) Type 2 diabetes mellitus with hyperglycemia: Comment: Dr. Peterson Code(s): E11.65 - Type 2 diabetes mellitus with hyperglycemia Qualifiers: Diabetes mellitus continuous churn buttermaker insulin use: without nursing home use Qualified Code(s): E11.65 - Type 2 diabetes mellitus with hyperglycemia Plan: Decrease the amount of carbohydrate intake, pasta, bread, rice and potatoes are all sugar and that is aside from all the sweet stuff, remember that fruits are good but they are Sweet also. Hemoglobin A1c goal of less than 7.0 patient is diet controlled hemoglobin A1c in January was 5.8 (2) Chronic kidney disease (CKD) stage G3a/A1, moderately decreased glomerular filtration rate (GFR) between 45-59 mL/min/1.73 square meter and albuminuria creatinine ratio less than 30 mg/g: Code(s): N18.31 - Chronic kidney disease, stage 3a Plan: Patient continues to follow-up with Nephrology chronic kidney disease stable (3) Hypercholesterolemia: Code(s): E78.00 - Pure hypercholesterolemia, unspecified Plan: Avoid fried foods, chicken skin, eggs, butter margarine, pastries and meat. Be it pork or beef they have a lot of cholesterol LDL goal of less than 100. Patient is on pravastatin 80 mg once a day with Zetia 10 mg once a day. Patient had a problem with Lipitor (4) Obesity (BMI 30-39.9): Code(s): E66.9 - Obesity, unspecified Plan: Diet and exercise (5) Hypertension: Code(s): I10 - Essential (primary) hypertension Qualifiers: Hypertension type: essential hypertension Qualified Code(s): I10 - Essential (primary) hypertension Plan: Continue with blood pressure medication. Decrease salt intake and exercise patient takes amlodipine 10 mg once a day. (6) Generalized anxiety disorder: Comment: decline counselling 07/2021 Code(s): F41.1 - Generalized anxiety disorder Plan: Continue with alprazolam as needed Orders: Orders Lipid Panel 3 Months E78.00 - Pure hypercholesterolemia, unspecified Comprehensive Met. Panel 3 Months E78.00 - Pure hypercholesterolemia, unspecified Medications: New 2 rosuvastatin 5 mg PO DAILY 30 tabs 3RF E78.00 - Pure hypercholesterolemia, unspecified Discontinued pravastatin Discontinued Reason: Doctor's Order 80 mg PO BEDTIME 90 tabs 2RF E78.00 - Pure hypercholesterolemia, unspecified Coding Level of Care Code Est Pt Level 4 (70127) Diagnoses Type 2 diabetes mellitus with hyperglycemia, without long-term current use of insulin E11.65 Diabetes mellitus nursing home insulin use: without continuous churn buttermaker use Chronic kidney disease (CKD) stage G3a/A1, moderately decreased glomerular filtration rate (GFR) between 45-59 mL/min/1.73 square meter and albuminuria creatinine ratio less than 30 mg/g N18.31 Hypercholesterolemia E78.00 Obesity (BMI 30-39.9) E66.9 Essential hypertension I10 Hypertension type: essential hypertension Generalized anxiety disorder F41.1 Additional Codes PHQ-9 - 74910 - PHQ-9 Billing: ([id number])
== END 2023-03-05 11:17 | disposition home or self-care (01) ==
PROVIDERS: PCP Internal Medicine; Visit Provider Internal Medicine
DX: E11.65 Type 2 diabetes mellitus with hyperglycemia (principal); N18.31 Chronic kidney disease, stage 3a; E66.9 Obesity, unspecified; Z68.30 Body mass index [BMI] 30.0-30.9, adult; I12.9 Hypertensive chronic kidney disease with stage 1 through stage 4 chronic kidney disease, or unspecified chronic kidney disease; E78.00 Pure hypercholesterolemia, unspecified; F41.1 Generalized anxiety disorder
CPT/HCPCS: 99214

== ENCOUNTER 2023-06-19 09:57 | Outpatient (REF) | payer MEDICARE, SELFPAY ==
[2023-06-19 12:00] LABS: Alanine Aminotransferase 12 U/L (0-31); Albumin Level 4.1 g/dL (3.5-5.0); Alkaline Phosphatase 72 U/L (39-117); Anion Gap 12 (12-20); Aspartate Amino Transferase 16 U/L (5-31); Bilirubin Total 0.7 mg/dL (0.0-1.0); Blood Urea Nitrogen 13 mg/dL (9-16); Calcium 9.8 mg/dL (8.4-10.2); Carbon Dioxide 24 mmol/L (22-29); Chloride 109 mmol/L (96-108); Cholesterol 142 mg/dL (<200); Estimated Glomerular Filt Rate 58; Glucose Random 90 mg/dL (60-115); HDL Cholesterol 39 mg/dL (>40); LDL Cholesterol Calculated 80 mg/dL (<100); Sodium 141 mmol/L (135-145); Triglycerides 116 mg/dL (<150)
== END 2023-06-19 09:58 | disposition home or self-care (01) ==
LOC: HO.10HDL 09:57
PROVIDERS: Visit Provider Internal Medicine
DX: E78.00 Pure hypercholesterolemia, unspecified (principal)
CPT/HCPCS: 36415; 80053; 80061

== ENCOUNTER 2023-06-21 10:30 | Outpatient (AMB) | payer MEDICARE, MEDICAID, SELFPAY ==
[2023-06-21 10:46] VITALS: BP 120/88; PULSE 88; O2SAT 99; BMI 30.9
--- NOTE | 2023-06-21 10:46 | MHC.PC.OV ---
Vital Signs 06/21/23 10:46 Height 5 ft 7 in Weight 197 lb 0.4 oz BMI 30.9 BP 120/88 Blood Pressure Location Lt brachial Position Sitting Pulse 88 Pulse Source Pulse Oximeter Pulse Oximetry (%) 99 Oxygen Delivery Method Room Air Intake Visit Reasons: DM , Cholesterol Napper Tender Required: No Allergies atorvastatin [Lipitor] Allergy (Unknown, Verified 06/21/23 10:46) Unknown lisinopril Allergy (Unknown, Verified 06/21/23 10:46) Unknown Tobacco use date assessed: 06/21/23 Fall risk assessment: No Falls in past year Last assessed Fall Risk: 06/21/23 Dental Screening Dental Screen Date: 06/21/23 Did you have a dental visit in the last 12 months?: No Did you have a dental problem in the last 6 months where you did not have access to dental care?: No HPI DM , Cholesterol HPI Details 73-year-old obese female with diabetes mellitus hypercholesterolemia hypertension chronic kidney disease generalized anxiety disorder last seen in February 2023. Patient is up-to-date with colonoscopy December 2021 mammogram and bone density. has been having indicriminate eating. will hold off med [facility] Medical History (Updated 03/05/23 @ 11:16 by Kalpana Campos MD) Adult general medical exam Avulsion fracture of right ankle Ankle pain Hypertension Obesity (BMI 30-39.9) Hypercholesterolemia Chronic kidney disease (CKD) stage G3a/A1, moderately decreased glomerular filtration rate (GFR) between 45-59 mL/min/1.73 square meter and albuminuria creatinine ratio less than 30 mg/g Type 2 diabetes mellitus with hyperglycemia Vitamin D deficiency Surgical History History of colonoscopy History of cataract surgery History of total hysterectomy Family History Father No problems noted. Mother Diabetes Hypertension Stroke Daughter Liver cancer Social History Housing: Apartment Are you a primary rn urgent care to a significant other at home: No Do you presently have visiting nurse or other home services: No Alcohol intake: never Patient Tobacco Use Status: Never used Tobacco e-Cigarette/Vaping Use: Never Used Second Hand Smoke Exposure: No service: No Current occupational status: retired Cognitive needs: No Hearing needs: No Vision needs: Yes Questionnaire PHQ-9 Over the last 2 weeks, how often have you been bothered by any of the following problems? 1. Little interest or pleasure in doing things: not at all 2. Feeling down, depressed, or hopeless: not at all 3. Trouble falling or staying asleep, or sleeping too much: not at all 4. Feeling tired or having little energy: not at all 5. Poor appetite or overeating: not at all 6. Feeling bad about yourself - or that you are a failure or have let yourself or your family down: not at all 7. Trouble concentrating on things, such as reading the newspaper or watching television: not at all 8. Moving or speaking so slowly that other people could have noticed. Or the opposite - being so fidgety or restless that you have been moving around a lot more than usual: not at all 9. Thoughts that you would be better off or of hurting yourself in some way: not at all Total score: 0 Depression Screening Interpretation: Negative Depression Screening Done: Yes Source: Developed by Drs. Reji Anaya, Carly Smith, Bandar De La Cruz and colleagues, with an educational inderjit from [email or web address]. Thrive Questionnaire Date Thrive assessed: 08/31/22 AUDIT C Alcohol Use Questionnaire (AUDIT-C) 1. How often do you have a drink containing alcohol?: Monthly or less 2. How many drinks containing alcohol do you have on a typical day when you are drinking?: 1 or 2 3. How often do you have six or more drinks on one occasion?: Never Total Score: 1 Score Reviewed/Action Taken: No MAME-7 AMB Questionnaire MAME-7 Date MAME - 7 assessed: 06/21/23 Feeling nervous, anxious, or on edge: 0 = Not at all Not being able to stop or control worryin = Not at all Worrying too much about different things: 0 = Not at all Trouble relaxin = Not at all Being so restless that it is hard to sit still: 0 = Not at all Becoming easily annoyed or irritable: 0 = Not at all Feeling afraid as if something awful might happen: 0 = Not at all Total MAME-7 score (0-4 normal; 5-9 mild; 10-14 moderate; 15-21 severe): 0 Source: Developed by Drs. Reji Anaya, Carly Smith, Bandar De La Cruz and colleagues, with an educational inderjit from [email or web address]. Physical exam (Primary Care) Vital Signs: Last Vital Signs Pulse 88 06/21/23 10:46 BP 120/88 06/21/23 10:46 Pulse Ox 99 06/21/23 10:46 Oxygen Delivery Method Room Air 06/21/23 10:46 BMI result Body Mass Index 30.9 Tobacco/Smoking Status: Tobacco use Status Tobacco use date assessed 06/21/23 06/21/23 10:47 Patient Tobacco Use Status Never used Tobacco 06/21/23 10:47 e-Cigarette/Vaping Use Never Used 06/21/23 10:47 PHQ-9: PHQ-9 Score PHQ-9: Total score 0 06/21/23 11:05 Depression Screening Interpretation: Negative Thrive Assessment: Date of Thrive Assessment Date Thrive assessed 08/31/22 06/21/23 10:47 Const General: alert; No acute distress Eyes Conjunctivae: conjunctivae normal Resp Auscultation: clear to auscultation bilaterally Cardio Rate: regular rate Rhythm: regular rhythm GI Inspection: Yes normal to inspection Extrem General: Yes normal to inspection and No edema Results AMB Hemoglobin A1c AMB Hemoglobin A1c 7.2 % Last Edit by ADRIANA Draper on 06/21/23 11:06 Results Reviewed Results Reviewed: Laboratory Last Values Hgb A1c (Clinic) 7.2 % (4.0-6.0) H 06/21/23 10:14 Assessment and Plan Assessment & Plan (1) Type 2 diabetes mellitus with hyperglycemia: Comment: Dr. Peterson Code(s): E11.65 - Type 2 diabetes mellitus with hyperglycemia Qualifiers: Diabetes mellitus fci insulin use: without fci use Qualified Code(s): E11.65 - Type 2 diabetes mellitus with hyperglycemia Plan: Decrease the amount of carbohydrate intake, pasta, bread, rice and potatoes are all sugar and that is aside from all the sweet stuff, remember that fruits are good but they are Sweet also. Hemoglobin A1c goal of less than 7.0 patient is on diet only. Discussed about the elevated AIC - need to eat better and will see on next AIC and if high still will add medication (2) Hypercholesterolemia: Code(s): E78.00 - Pure hypercholesterolemia, unspecified Plan: Avoid fried foods, chicken skin, eggs, butter margarine, pastries and meat. Be it pork or beef they have a lot of cholesterol LDL goal of less than 100 and triglyceride of less than 150. Patient on Zetia and rosuvastatin (3) Hypertension: Code(s): I10 - Essential (primary) hypertension Qualifiers: Hypertension type: essential hypertension Qualified Code(s): I10 - Essential (primary) hypertension Plan: Continue with blood pressure medication. Decrease salt intake and exercise patient takes amlodipine 10 mg once a day and spironolactone (4) Obesity (BMI 30-39.9): Code(s): E66.9 - Obesity, unspecified Plan: Diet and exercise (5) Chronic kidney disease (CKD) stage G3a/A1, moderately decreased glomerular filtration rate (GFR) between 45-59 mL/min/1.73 square meter and albuminuria creatinine ratio less than 30 mg/g: Code(s): N18.31 - Chronic kidney disease, stage 3a Plan: Keep well hydrated avoid NSAIDs (6) Generalized anxiety disorder: Comment: decline counselling 07/2021 Code(s): F41.1 - Generalized anxiety disorder Plan: Continue with present medication as needed Orders: Orders AMB Hemoglobin A1c Today E11.65 - Type 2 diabetes mellitus with hyperglycemia Coding Level of Care Code Est Pt Level 4 (30530) Diagnoses Type 2 diabetes mellitus with hyperglycemia, without long-term current use of insulin E11.65 Diabetes mellitus fci insulin use: without exterminator helper termite use Hypercholesterolemia E78.00 Essential hypertension I10 Hypertension type: essential hypertension Obesity (BMI 30-39.9) E66.9 Chronic kidney disease (CKD) stage G3a/A1, moderately decreased glomerular filtration rate (GFR) between 45-59 mL/min/1.73 square meter and albuminuria creatinine ratio less than 30 mg/g N18.31 Generalized anxiety disorder F41.1 Additional Codes PHQ-9 - 15272 - PHQ-9 Billing: ([id number])
== END 2023-06-21 11:34 | disposition home or self-care (01) ==
PROVIDERS: PCP Internal Medicine; Visit Provider Internal Medicine
DX: E11.65 Type 2 diabetes mellitus with hyperglycemia (principal); N18.31 Chronic kidney disease, stage 3a; Z68.30 Body mass index [BMI] 30.0-30.9, adult; E66.9 Obesity, unspecified; E78.00 Pure hypercholesterolemia, unspecified; I10 Essential (primary) hypertension; F41.1 Generalized anxiety disorder
CPT/HCPCS: 83036; 99214

== ENCOUNTER 2023-07-09 11:29 | Outpatient (AMB) | payer MEDICARE, MEDICAID, SELFPAY ==
--- NOTE | 2023-07-09 11:32 | HO.NEPHOV_ITS ---
HPI HPI Comments History of Present Illness Details 73 year old woman with HTN, obesity and DM with stable renal function Baseline creatinine of 0.9 PFSH Medical History (Updated 03/05/23 @ 11:16 by Kalpana Campos MD) Adult general medical exam Avulsion fracture of right ankle Ankle pain Hypertension Obesity (BMI 30-39.9) Hypercholesterolemia Chronic kidney disease (CKD) stage G3a/A1, moderately decreased glomerular filtration rate (GFR) between 45-59 mL/min/1.73 square meter and albuminuria creatinine ratio less than 30 mg/g Type 2 diabetes mellitus with hyperglycemia Vitamin D deficiency Surgical History History of colonoscopy History of cataract surgery History of total hysterectomy Family History Father No problems noted. Mother Diabetes Hypertension Stroke Daughter Liver cancer Social History Housing: Apartment Are you a primary hospice patient care secretary to a significant other at home: No Do you presently have visiting nurse or other home services: No Alcohol intake: never Patient Tobacco Use Status: Never used Tobacco e-Cigarette/Vaping Use: Never Used Second Hand Smoke Exposure: No service: No Current occupational status: retired Cognitive needs: No Hearing needs: No Vision needs: Yes Vital Signs 07/09/23 11:33 07/09/23 11:44 Height 5 ft 7 in Weight 198 lb 4 oz BMI 31.0 BP 140/84 H 120/70 Blood Pressure Location Lt brachial Lt brachial Position Sitting Sitting Pulse 84 Pulse Source Pulse Oximeter Pulse Oximetry (%) 96 Oxygen Delivery Method Room Air Physical Exam Vital Signs: Last Vital Signs Pulse 84 07/09/23 11:33 BP 140/84 H 07/09/23 11:33 Pulse Ox 96 07/09/23 11:33 Oxygen Delivery Method Room Air 07/09/23 11:33 BMI result Body Mass Index 31.0 Const General: comfortable Nutritional Appearance: well nourished Orientation/consciousness: patient oriented x3 HEENT Head: No normal to inspection Mouth: moist mucous membranes Neck Neck: Yes supple and Yes no JVD Resp Auscultation: clear to auscultation bilaterally, no rales and rub present Cardio Jugular venous distension: no JVD Palpation: no palpable S3 and no palpable S4 Heart sounds: no rubs GI Palpation (GI): Soft to palpation and nontender Percussion: No Fluid wave present General: Yes no CVA tenderness Back/Spine/Pelvis Back: no CVA tenderness Skin General skin exam: no rashes or lesions noted Neuro General: patient oriented x3 Extrem General: Yes no pedal edema and No clubbing Assessment & Plan Assessment & Plan (1) Hypertension: Code(s): I10 - Essential (primary) hypertension Qualifiers: Hypertension type: essential hypertension Qualified Code(s): I10 - Essential (primary) hypertension Plan Elderly woman with HTN, DM and Obesity BP is well controlled Renal function is stable with a creatinine of 0.95 No proteinuria Needs weight loss Continue Spironolactone Avoid nephrotoxins Maintain A1C < 7% no changes were made today Coding Level of Care Code Est Pt Level 4 (84809) Diagnoses Essential hypertension I10 Hypertension type: essential hypertension Results Reviewed Nephrology Results: Hgb 13.1 g/dl (12.0-16.0) 02/02/23 WBC 4.0 X10*3/uL (4.8-10.8) L 02/02/23 Plt Count 251 X10*3/uL (160-400) 02/02/23 Sodium 141 mmol/L (135-145) 06/19/23 Potassium 4.0 mmol/L (3.3-5.1) 06/19/23 Chloride 109 mmol/L (96-108) H 06/19/23 Carbon Dioxide 24 mmol/L (22-29) 06/19/23 BUN 13 mg/dL (9-16) 06/19/23 Creatinine 0.95 mg/dL (0.5-1.4) 06/19/23 Calcium 9.8 mg/dL (8.4-10.2) 06/19/23 Urine Creatinine 162.34 mg/dL 02/02/23
[2023-07-09 11:33] VITALS: BP 140/84; PULSE 84; O2SAT 96; BMI 31.0
[2023-07-09 11:44] VITALS: BP 120/70
== END 2023-07-09 11:47 | disposition home or self-care (01) ==
PROVIDERS: PCP Internal Medicine; Visit Provider Internal Medicine Hypertension Specialist
DX: I10 Essential (primary) hypertension (principal)
CPT/HCPCS: 99214

== ENCOUNTER → 2023-07-09 11:29 | Outpatient (BNVA) | payer MEDICARE, OTHER, SELFPAY | PROVIDERS: PCP Internal Medicine; Visit Provider Internal Medicine Hypertension Specialist | DX: I10 Essential (primary) hypertension (principal) | CPT/HCPCS: 99212 ==

== ENCOUNTER 2023-09-21 09:29 | Outpatient (AMB) | payer MEDICARE, SELFPAY ==
[2023-09-21 09:30] VITALS: BP 134/70; PULSE 79; O2SAT 98; BMI 30.7
--- NOTE | 2023-09-21 09:30 | A.OFFPC_ITS ---
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 Required: No Allergies atorvastatin [Lipitor] Allergy (Unknown, Verified 09/21/23 09:31) Unknown lisinopril Allergy (Unknown, Verified 09/21/23 09:31) Unknown Medication List - Last Reconciled 09/21/23 by Kalpana Campos MD alprazolam 0.25 mg PO DAILY PRN amlodipine 10 mg PO DAILY 90 days aspirin (Adult Low Dose Aspirin) 81 mg PO DAILY cane As directed cholecalciferol (vitamin D3) 25 mcg PO DAILY ezetimibe (Zetia) 10 mg PO DAILY 90 days fluticasone propionate 50 mcg/actuation 2 sprays intranasal DAILY PRN rosuvastatin 5 mg PO DAILY sennosides-docusate sodium 8.6-50 mg (Senna Plus) 1 tab-cap PO BID PRN spironolactone 25 mg PO DAILY 90 days Tobacco use date assessed: 09/21/23 Fall risk assessment: No Falls in past year Last assessed Fall Risk: 09/21/23 Dental Screening Dental Screen Date: 06/21/23 Did you have a dental visit in the last 12 months?: Yes Did you have a dental problem in the last 6 months where you did not have access to dental care?: No Was dental information given to patient?: Patient has dentist HPI DM HPI Details 73-year-old obese female with diabetes m ellitus hypertension hypercholesterolemia chronic kidney disease and generalized anxiety disorder last seen in June 2023. Patient's colonoscopy is up-to-date December 2021 mammogram is up-to-date January 2023 and bone density up-to-date January 2022. Patient follows up with Nephrology seen in June 2023 stable renal function and blood pressure well under control. [facility] Medical History (Updated 09/21/23 @ 09:43 by Kalpana Campos MD) Adult general medical exam Avulsion fracture of right ankle Ankle pain Hypertension Obesity (BMI 30-39.9) Hypercholesterolemia Chronic kidney disease (CKD) stage G3a/A1, moderately decreased glomerular filtration rate (GFR) between 45-59 mL/min/1.73 square meter and albuminuria creatinine ratio less than 30 mg/g Type 2 diabetes mellitus with hyperglycemia Vitamin D deficiency Surgical History History of colonoscopy History of cataract surgery History of total hysterectomy Family History Father No problems noted. Mother Diabetes Hypertension Stroke Daughter Liver cancer Social History Housing: Apartment Are you a primary critical care specialist to a significant other at home: No Do you presently have visiting nurse or other home services: No Alcohol intake: never Patient Tobacco Use Status: Never used Tobacco e-Cigarette/Vaping Use: Never Used Second Hand Smoke Exposure: No service: No Current occupational status: retired Cognitive needs: No Hearing needs: No Vision needs: Yes Questionnaire Thrive Questionnaire Date Thrive assessed: 08/31/22 AUDIT C Alcohol Use Questionnaire (AUDIT-C) 1. How often do you have a drink containing alcohol?: Monthly or less 2. How many drinks containing alcohol do you have on a typical day when you are drinking?: 1 or 2 3. How often do you have six or more drinks on one occasion?: Never Total Score: 1 Score Reviewed/Action Taken: No MAME-7 AMB Questionnaire MAME-7 Date MAME - 7 assessed: 06/21/23 Source: Developed by Drs. Reji Anaya, Carly Smith, Bandar De La Cruz and colleagues, with an educational inderjit from [employer]. Physical exam (Primary Care) Vital Signs: Last Vital Signs Pulse 79 09/21/23 09:30 BP 134/70 09/21/23 09:30 Pulse Ox 98 09/21/23 09:30 Oxygen Delivery Method Room Air 09/21/23 09:30 BMI result Body Mass Index 30.7 Tobacco/Smoking Status: Tobacco use Status Tobacco use date assessed 09/21/23 09/21/23 09:41 Patient Tobacco Use Status Never used Tobacco 09/21/23 09:41 e-Cigarette/Vaping Use Never Used 09/21/23 09:41 Thrive Assessment: Date of Thrive Assessment Date Thrive assessed 08/31/22 09/21/23 09:41 Const General: alert; No acute distress Eyes Conjunctivae: conjunctivae normal Resp Auscultation: clear to auscultation bilaterally Cardio Rate: regular rate Rhythm: regular rhythm GI Inspection: Yes normal to inspection Extrem General: Yes normal to inspection and No edema Results AMB Hemoglobin A1c AMB Hemoglobin A1c 6.1 % Last Edit by ADRIANA Draper on 09/21/23 09:44 Assessment and Plan Assessment & Plan (1) Type 2 diabetes mellitus with hyperglycemia: Comment: Dr. Peterson Code(s): E11.65 - Type 2 diabetes mellitus with hyperglycemia Qualifiers: Diabetes mellitus oysterman insulin use: without oysterman use Qualified Code(s): E11.65 - Type 2 diabetes mellitus with hyperglycemia Plan: Decrease the amount of carbohydrate intake, pasta, bread, rice and potatoes are all sugar and that is aside from all the sweet stuff, remember that fruits are good but they are Sweet also. Hemoglobin A1c goal of less than 7.0. Patient is on diet control last A1c was 7.2. (2) Chronic kidney disease (CKD) stage G3a/A1, moderately decreased glomerular filtration rate (GFR) between 45-59 mL/min/1.73 square meter and albuminuria creatinine ratio less than 30 mg/g: Code(s): N18.31 - Chronic kidney disease, stage 3a Plan: Patient follows up with Nephrology stable continue controlling blood pressure and diabetes (3) Hypercholesterolemia: Code(s): E78.00 - Pure hypercholesterolemia, unspecified Plan: Avoid fried foods, chicken skin, eggs, butter margarine, pastries and meat. Be it pork or beef they have a lot of cholesterol LDL goal of less than 100 and triglyceride of less than 150 on rosuvastatin 5 mg once a day and Zetia 10 mg once a day June 2023 last blood work LDL of 80 (4) Obesity (BMI 30-39.9): Code(s): E66.9 - Obesity, unspecified Plan: Continue with diet and exercise (5) Hypertension: Code(s): I10 - Essential (primary) hypertension Qualifiers: Hypertension type: essential hypertension Qualified Code(s): I10 - Essential (primary) hypertension Plan: Continue with blood pressure medication. Decrease salt intake and exercise patient on spironolactone 25 mg once a day amlodipine 10 mg once a day (6) Generalized anxiety disorder: Comment: decline counselling 07/2021 Code(s): F41.1 - Generalized anxiety disorder Plan: Continue with alprazolam as needed (7) Allergic rhinitis: Code(s): J30.9 - Allergic rhinitis, unspecified Orders: Orders AMB Hemoglobin A1c Today E11.65 - Type 2 diabetes mellitus with hyperglycemia Medications: New fluticasone propionate 50 mcg/actuation administer into each nostril 2 sprays intranasal DAILY PRN 16 grams 4RF Nasal Congestion J30.9 - Allergic rhinitis, unspecified Coding Level of Care Code Tele New Pt Level 3 (84493) Diagnoses Type 2 diabetes mellitus with hyperglycemia, without long-term current use of insulin E11.65 Diabetes mellitus oysterman insulin use: without oysterman use Chronic kidney disease (CKD) stage G3a/A1, moderately decreased glomerular filtration rate (GFR) between 45-59 mL/min/1.73 square meter and albuminuria creatinine ratio less than 30 mg/g N18.31 Hypercholesterolemia E78.00 Obesity (BMI 30-39.9) E66.9 Essential hypertension I10 Hypertension type: essential hypertension Generalized anxiety disorder F41.1 Allergic rhinitis J30.9
== END 2023-09-21 09:57 | disposition home or self-care (01) ==
PROVIDERS: PCP Internal Medicine; Visit Provider Internal Medicine
DX: E11.65 Type 2 diabetes mellitus with hyperglycemia (principal); N18.31 Chronic kidney disease, stage 3a; Z68.30 Body mass index [BMI] 30.0-30.9, adult; E66.9 Obesity, unspecified; E78.00 Pure hypercholesterolemia, unspecified; I10 Essential (primary) hypertension; F41.1 Generalized anxiety disorder; J30.9 Allergic rhinitis, unspecified
CPT/HCPCS: 83036; 99213

== ENCOUNTER 2023-12-03 10:46 | Outpatient (AMB) | payer MEDICARE, MEDICAID, SELFPAY ==
[2023-12-03 10:47] VITALS: BP 124/76; PULSE 88; O2SAT 96; BMI 30.7
--- NOTE | 2023-12-03 10:47 | HO.NEPHOV ---
Vital Signs 12/03/23 10:47 Height 5 ft 7 in Weight 196 lb BMI 30.7 BP 124/76 Blood Pressure Location Rt brachial Position Sitting Pulse 88 Pulse Source Pulse Oximeter Pulse Oximetry (%) 96 Oxygen Delivery Method Room Air Intake Visit Reasons: / November/ Conf Tie Up Worker Required: No Accompanied by: Self / Same As Patient Allergies atorvastatin [Lipitor] Allergy (Unknown, Verified 12/03/23 10:51) Unknown lisinopril Allergy (Unknown, Verified 12/03/23 10:51) Unknown Medication List - Last Reconciled 12/03/23 by Joel Quintana MD alprazolam 0.25 mg PO DAILY PRN amlodipine 10 mg PO DAILY 90 days aspirin (Adult Low Dose Aspirin) 81 mg PO DAILY cane As directed cholecalciferol (vitamin D3) 25 mcg PO DAILY ezetimibe (Zetia) 10 mg PO DAILY 90 days fluticasone propionate 50 mcg/actuation 2 sprays intranasal DAILY PRN rosuvastatin 5 mg PO DAILY sennosides-docusate sodium 8.6-50 mg (Senna Plus) 1 tab-cap PO BID PRN spironolactone 25 mg PO DAILY 90 days HPI Comments Details: 73 year old woman with HTN, obesity and DM with stable renal function Baseline creatinine of 0.9 12/03/2023 Overall she has doing well no new complaints today. She is lost some weight [facility] Medical History (Updated 09/21/23 @ 09:43 by Kalpana Campos MD) Adult general medical exam Avulsion fracture of right ankle Ankle pain Hypertension Obesity (BMI 30-39.9) Hypercholesterolemia Chronic kidney disease (CKD) stage G3a/A1, moderately decreased glomerular filtration rate (GFR) between 45-59 mL/min/1.73 square meter and albuminuria creatinine ratio less than 30 mg/g Type 2 diabetes mellitus with hyperglycemia Vitamin D deficiency Surgical History History of colonoscopy History of cataract surgery History of total hysterectomy Family History Father No problems noted. Mother Diabetes Hypertension Stroke Daughter Liver cancer Social History Housing: Apartment Are you a primary health care marketing specialist to a significant other at home: No Do you presently have visiting nurse or other home services: No Alcohol intake: never Patient Tobacco Use Status: Never used Tobacco e-Cigarette/Vaping Use: Never Used Second Hand Smoke Exposure: No service: No Current occupational status: retired Cognitive needs: No Hearing needs: No Vision needs: Yes Physical Exam Vital Signs: Last Vital Signs Pulse 88 12/03/23 10:47 BP 124/76 12/03/23 10:47 Pulse Ox 96 12/03/23 10:47 Oxygen Delivery Method Room Air 12/03/23 10:47 BMI result Body Mass Index 30.7 Const General: comfortable Nutritional Appearance: well nourished Orientation/consciousness: patient oriented x3 HEENT Head: No normal to inspection Mouth: moist mucous membranes Neck Neck: Yes supple and Yes no JVD Resp Auscultation: clear to auscultation bilaterally, no rales and rub present Cardio Jugular venous distension: no JVD Palpation: no palpable S3 and no palpable S4 Heart sounds: no rubs GI Palpation (GI): Soft to palpation and nontender Percussion: No Fluid wave present General: Yes no CVA tenderness Back/Spine/Pelvis Back: no CVA tenderness Skin General skin exam: no rashes or lesions noted Neuro General: patient oriented x3 Extrem General: Yes no pedal edema and No clubbing Results Reviewed Nephrology Results: Hgb 13.1 g/dl (12.0-16.0) 02/02/23 WBC 4.0 X10*3/uL (4.8-10.8) L 02/02/23 Plt Count 251 X10*3/uL (160-400) 02/02/23 Sodium 141 mmol/L (135-145) 06/19/23 Potassium 4.0 mmol/L (3.3-5.1) 06/19/23 Chloride 109 mmol/L (96-108) H 06/19/23 Carbon Dioxide 24 mmol/L (22-29) 06/19/23 BUN 13 mg/dL (9-16) 06/19/23 Creatinine 0.95 mg/dL (0.5-1.4) 06/19/23 Calcium 9.8 mg/dL (8.4-10.2) 06/19/23 Urine Creatinine 162.34 mg/dL 02/02/23 Assessment & Plan Assessment & Plan (1) Hypertension: Code(s): I10 - Essential (primary) hypertension Category: Medical Qualifiers: Hypertension type: essential hypertension Qualified Code(s): I10 - Essential (primary) hypertension (2) Chronic kidney disease (CKD) stage G3a/A1, moderately decreased glomerular filtration rate (GFR) between 45-59 mL/min/1.73 square meter and albuminuria creatinine ratio less than 30 mg/g: Code(s): N18.31 - Chronic kidney disease, stage 3a Category: Medical Plan Elderly woman with HTN, DM and Obesity BP is well controlled Renal function is stable with a creatinine of 0.95 Repeat labs ordered today No proteinuria Needs weight loss Continue Spironolactone Avoid nephrotoxins Maintain A1C < 7% no changes were made today Orders: Orders Total Protein Urine Random Today I10 - Essential (primary) hypertension, N18.31 - Chronic kidney disease, stage 3a Complete Blood Count no Diff Today I10 - Essential (primary) hypertension, N18.31 - Chronic kidney disease, stage 3a Comprehensive Met. Panel Today I10 - Essential (primary) hypertension, N18.31 - Chronic kidney disease, stage 3a Creatinine Urine Today I10 - Essential (primary) hypertension, N18.31 - Chronic kidney disease, stage 3a UA and rflx microscopic Today I10 - Essential (primary) hypertension, N18.31 - Chronic kidney disease, stage 3a Coding Level of Care Code Est Pt Level 4 (71027) Diagnoses Essential hypertension I10 Hypertension type: essential hypertension Chronic kidney disease (CKD) stage G3a/A1, moderately decreased glomerular filtration rate (GFR) between 45-59 mL/min/1.73 square meter and albuminuria creatinine ratio less than 30 mg/g N18.31
== END 2023-12-03 11:07 | disposition home or self-care (01) ==
PROVIDERS: PCP Internal Medicine; Visit Provider Internal Medicine Hypertension Specialist
DX: I10 Essential (primary) hypertension (principal); N18.31 Chronic kidney disease, stage 3a
CPT/HCPCS: 99214

== ENCOUNTER → 2023-12-03 10:46 | Outpatient (BNVA) | payer MEDICARE, MEDICAID, SELFPAY | PROVIDERS: PCP Internal Medicine; Visit Provider Internal Medicine Hypertension Specialist | DX: I12.9 Hypertensive chronic kidney disease with stage 1 through stage 4 chronic kidney disease, or unspecified chronic kidney disease (principal); N18.31 Chronic kidney disease, stage 3a | CPT/HCPCS: 99212 ==

== ENCOUNTER 2023-12-03 11:11 | Outpatient (REF) | payer MEDICARE, MEDICAID, SELFPAY ==
[2023-12-03 13:21] LABS: Appearance Urine Cloudy; Color Urine Yellow; Glucose Urine UA Negative (Negative); Leukocyte Esterase Urine Negative (Negative); Nitrite Urine Negative (Negative); PH 5.5 (5.0-9.0); Urine Blood Negative (Negative); Urine Ketones Negative (Negative); Urine Protein Negative (Neg-Trace)
[2023-12-03 13:37] LABS: Hematocrit 39.9 % (37.0-47.0); Hemoglobin 13.3 g/dl (12.0-16.0); Mean Corpuscular HGB Conc 33.3 g/dl (31.0-35.0); Mean Corpuscular Hemoglobin 27.9 pg (27.0-33.0); Mean Corpuscular Volume 83.8 fL (80.0-98.0); Mean Platelet Volume 9.9 fL (9.4-12.3); Platelet Count 256 X10*3/uL (160-400); Red Blood Count 4.76 X10*6/uL (4.20-5.50); Red Cell Distribution Width 13.7 % (11.0-16.0); White Blood Count 4.7 X10*3/uL (4.8-10.8)
[2023-12-03 13:51] LABS: Alanine Aminotransferase 14 U/L (0-31); Albumin Level 4.3 g/dL (3.5-5.0); Alkaline Phosphatase 73 U/L (39-117); Anion Gap 12 (12-20); Aspartate Amino Transferase 16 U/L (5-31); Bilirubin Total 0.5 mg/dL (0.0-1.0); Blood Urea Nitrogen 17 mg/dL (9-16); Calcium 10.3 mg/dL (8.4-10.2); Carbon Dioxide 24 mmol/L (22-29); Chloride 107 mmol/L (96-108); Estimated Glomerular Filt Rate 46; Glucose Random 90 mg/dL (60-115); Potassium 4.4 mmol/L (3.3-5.1); Sodium 139 mmol/L (135-145); Total Protein 8.4 g/dL (6.5-8.0)
[2023-12-03 14:16] LABS: Total Protein Urine Random 14 mg/dL (<12)
== END 2023-12-03 11:12 | disposition home or self-care (01) ==
LOC: HO.10HDL 11:11
PROVIDERS: Visit Provider Internal Medicine Hypertension Specialist
DX: I10 Essential (primary) hypertension (principal); N18.31 Chronic kidney disease, stage 3a
CPT/HCPCS: 36415; 80053; 81003; 82570; 84156; 85027

== ENCOUNTER 2024-02-05 09:22 | Outpatient (REF) | payer MEDICARE, SELFPAY ==
--- NOTE | ~2024-02-05 | MM_ITS ---
EXAMINATION: MM SCREENING DIGITAL BREAST TOMOSYNTHESIS, BILATERAL CLINICAL INFORMATION: Screening. Asymptomatic. COMPARISON: Mammography: This study is compared with prior exams dating back to 2020. TECHNIQUE: Digital breast tomosynthesis is performed in both the craniocaudal and mediolateral oblique views along with computer-aided detection (CAD). Synthesized 2D images are generated from the tomosynthesis. FINDINGS: There are scattered areas of fibroglandular density (ACR BI-RADS breast composition Category b). There are no significant masses, abnormal calcifications, or other abnormalities. MM/MM tomosynthesis screening BI IMPRESSION: No mammographic evidence of malignancy. ASSESSMENT: BI-RADS BI-RADS 1 - Negative RECOMMENDATION: Routine annual mammography screening. 1 year F/U This examination should not preclude the clinical evaluation of a suspicious palpable abnormality. This patient's information was entered into a reminder system with a target due date for their next mammogram. Electronically signed by: Loren Brizuela MD 03/04/2024 12:07 PM EDT
== END 2024-02-05 09:23 | disposition home or self-care (01) ==
LOC: HO.MAMMO 09:22
PROVIDERS: PCP Internal Medicine; Visit Provider Internal Medicine
DX: Z12.31 Encounter for screening mammogram for malignant neoplasm of breast (principal)
CPT/HCPCS: 77063; 77067

== ENCOUNTER → 2024-02-05 09:45 | Outpatient (BNV) | payer MEDICARE, SELFPAY | PROVIDERS: PCP Internal Medicine; Visit Provider Radiology Diagnostic Radiology | DX: Z12.31 Encounter for screening mammogram for malignant neoplasm of breast (principal) | CPT/HCPCS: 77063; 77067 ==

== ENCOUNTER 2024-02-06 09:23 | Outpatient (AMB) | payer MEDICARE, SELFPAY ==
[2024-02-06 09:46] VITALS: BP 138/78; PULSE 80; O2SAT 98; BMI 30.4
--- NOTE | 2024-02-06 09:46 | A.OFFPC_ITS ---
Vital Signs 02/06/24 09:46 Height 5 ft 7 in Weight 194 lb BMI 30.4 BP 138/78 Blood Pressure Location Lt brachial Position Sitting Pulse 80 Pulse Source Pulse Oximeter Pulse Oximetry (%) 98 Oxygen Delivery Method Room Air Intake Visit Reasons: DM Allergies atorvastatin [Lipitor] Allergy (Unknown, Verified 02/06/24 09:46) Unknown lisinopril Allergy (Unknown, Verified 02/06/24 09:46) Unknown Tobacco use date assessed: 09/21/23 Fall risk assessment: No Falls in past year Last assessed Fall Risk: 02/06/24 Dental Screening Dental Screen Date: 02/06/24 Did you have a dental visit in the last 12 months?: Yes Did you have a dental problem in the last 6 months where you did not have access to dental care?: No Was dental information given to patient?: Patient has dentist HPI DM HPI Details 73-year-old obese female with controlled diabetes mellitus chronic kidney disease hypercholesterolemia hypertension generalized anxiety disorder last seen in September 2023. Patient is up-to-date with colonoscopy December 2021 due for mammogram this month and bone density.. Review of the notes has been follow-up with Nephrology November 2023 blood pressure is under control with renal function stable.. [facility] Medical History (Updated 09/21/23 @ 09:43 by Kalpana Campos MD) Adult general medical exam Avulsion fracture of right ankle Ankle pain Hypertension Obesity (BMI 30-39.9) Hypercholesterolemia Chronic kidney disease (CKD) stage G3a/A1, moderately decreased glomerular filtration rate (GFR) between 45-59 mL/min/1.73 square meter and albuminuria creatinine ratio less than 30 mg/g Type 2 diabetes mellitus with hyperglycemia Vitamin D deficiency Surgical History History of colonoscopy History of cataract surgery History of total hysterectomy Family History Father No problems noted. Mother Diabetes Hypertension Stroke Daughter Liver cancer Social History Housing: Apartment Are you a primary care director rn to a significant other at home: No Do you presently have visiting nurse or other home services: No Alcohol intake: never Patient Tobacco Use Status: Never used Tobacco Tobacco use type: Cigarette e-Cigarette/Vaping Use: Never Used Second Hand Smoke Exposure: No service: No Current occupational status: retired Cognitive needs: No Hearing needs: No Vision needs: Yes Questionnaire PHQ-9 Over the last 2 weeks, how often have you been bothered by any of the following problems? 1. Little interest or pleasure in doing things: not at all 2. Feeling down, depressed, or hopeless: not at all 3. Trouble falling or staying asleep, or sleeping too much: not at all 4. Feeling tired or having little energy: not at all 5. Poor appetite or overeating: not at all 6. Feeling bad about yourself - or that you are a failure or have let yourself or your family down: not at all 7. Trouble concentrating on things, such as reading the newspaper or watching television: not at all 8. Moving or speaking so slowly that other people could have noticed. Or the opposite - being so fidgety or restless that you have been moving around a lot more than usual: not at all 9. Thoughts that you would be better off or of hurting yourself in some way: not at all Total score: 0 Depression Screening Interpretation: Negative Depression Screening Done: Yes Source: Developed by Drs. Reji Anaya, Carly Smiht, Bandar De La Cruz and colleagues, with an educational inderjit from [employer]. Thrive Questionnaire Date Thrive assessed: 02/06/24 I am a: Patient What is your living situation today?: I have a steady place to live Within the past 12 months, did the food you bought not last and you didn't have the money to get more?: Never true Within the past 12 months, did you worry whether your food would run out before you got money to buy more?: Never true Do you have trouble paying for medicines?: No Do you have trouble getting transportation to medical appointments?: No Do you have trouble paying your heating and electricity bill?: No Do you have trouble taking care of your child, family member or friend?: No Do you have trouble with day-to-day activities such as bathing, preparing meals, shopping, managing finances, etc.?: No Are you currently unemployed and looking for a job?: No Are you interested in more education?: No Currently or been in a relationship where the following occur: No concerns reported THRIVE Score: 0 AUDIT C Alcohol Use Questionnaire (AUDIT-C) 1. How often do you have a drink containing alcohol?: Monthly or less 2. How many drinks containing alcohol do you have on a typical day when you are drinking?: 1 or 2 3. How often do you have six or more drinks on one occasion?: Never Total Score: 1 Score Reviewed/Action Taken: No MAME-7 AMB Questionnaire MAME-7 Date MAME - 7 assessed: 06/21/23 Source: Developed by Drs. Reji Anaya, Carly Smith, Bandar De La Cruz and colleagues, with an educational inderjit from [employer]. Physical exam (Primary Care) Vital Signs: Last Vital Signs Pulse 80 02/06/24 09:46 BP 138/78 02/06/24 09:46 Pulse Ox 98 02/06/24 09:46 Oxygen Delivery Method Room Air 02/06/24 09:46 BMI result Body Mass Index 30.4 Tobacco/Smoking Status: Tobacco use Status Tobacco use date assessed 09/21/23 02/06/24 09:53 Patient Tobacco Use Status Never used Tobacco 02/06/24 09:53 Tobacco use type Cigarette 02/06/24 09:53 e-Cigarette/Vaping Use Never Used 02/06/24 09:53 PHQ-9: PHQ-9 Score PHQ-9: Total score 0 02/06/24 10:03 Depression Screening Interpretation: Negative Thrive Assessment: Date of Thrive Assessment Date Thrive assessed 02/06/24 02/06/24 09:53 Currently or been in a relationship where the following occur: No concerns reported Const General: alert; No acute distress Eyes Conjunctivae: conjunctivae normal Resp Auscultation: clear to auscultation bilaterally Cardio Rate: regular rate Rhythm: regular rhythm GI Inspection: Yes normal to inspection Extrem General: Yes normal to inspection and No edema Results AMB Hemoglobin A1c AMB Hemoglobin A1c 6.2 % Last Edit by Pauline Hendrickson CMA on 02/06/24 10 :02 Immunizations tetanus-diphtheria toxoids-Td 2 Lf unit-2 Lf unit/0.5 mL IM suspension Performing Provider: Kalpana Campos MD [facility] Administered by: ADRIANA Draper on 02/06/24 10:15 Dose Route Admin Location Dispensed Lot Number Expiration Date NDC Varnishing Machine Operator 0.5 mL IM Left Deltoid 0.5 mL [id number] 07/28/24 [id number] [employer] VIS Given Date VIS Provided VIS Publication Date 02/06/24 Single Vaccine 21 Eligibility Eligibility Date Funding Source Not [facility] Eligible 02/06/24 State funds Results Reviewed Results Reviewed: Laboratory Last Values Hgb A1c (Clinic) 6.2 % (4.0-6.0) H 02/06/24 10:02 Assessment and Plan Assessment & Plan (1) Type 2 diabetes mellitus with hyperglycemia: Comment: Dr. Peetrson Code(s): E11.65 - Type 2 diabetes mellitus with hyperglycemia Qualifiers: Diabetes mellitus assisted insulin use: without intermodal owner operator truck driver use Qualified Code(s): E11.65 - Type 2 diabetes mellitus with hyperglycemia Plan: Avoid the foods that causes that usually spicy foods, tomato products, juices, coffee, soda and foods that your sensitive to. After eating do not lie down, allow 3-4 hours before in lie down. And keep the head of bed above 30 degrees to avoid the acid from going up. Hemoglobin A1c goal of less than 7.0. Patient on diet control (2) Chronic kidney disease (CKD) stage G3a/A1, moderately decreased glomerular filtration rate (GFR) between 45-59 mL/min/1.73 square meter and albuminuria creatinine ratio less than 30 mg/g: Code(s): N18.31 - Chronic kidney disease, stage 3a Plan: Keep well hydrated avoid NSAIDs control blood pressure (3) Hypercholesterolemia: Code(s): E78.00 - Pure hypercholesterolemia, unspecified Plan: Avoid fried foods, chicken skin, eggs, butter margarine, pastries and meat. Be it pork or beef they have a lot of cholesterol LDL goal of less than 100 and triglyceride of less than 150 June 2023 last blood work on rosuvastatin 5 mg once a day and Zetia 10 mg once (4) Obesity (BMI 30-39.9): Code(s): E66.9 - Obesity, unspecified Plan: Diet and exercise (5) Hypertension: Code(s): I10 - Essential (primary) hypertension Qualifiers: Hypertension type: essential hypertension Qualified Code(s): I10 - Essential (primary) hypertension Plan: Continue with blood pressure medication. Decrease salt intake and exercise on spironolactone 25 mg once a day amlodipine 10 mg once a day patient is not able to take lisinopril. (6) Generalized anxiety disorder: Comment: decline counselling 07/2021 Code(s): F41.1 - Generalized anxiety disorder Plan: Stable Orders: Orders Comprehensive Met. Panel 5 Months E11.65 - Type 2 diabetes mellitus with hyperglycemia Hemoglobin A1c 5 Months E11.65 - Type 2 diabetes mellitus with hyperglycemia Lipid Panel 5 Months E11.65 - Type 2 diabetes mellitus with hyperglycemia, E78.00 - Pure hypercholesterolemia, unspecified Vitamin B12 and Folate 5 Months E11.65 - Type 2 diabetes mellitus with hyperglycemia Vitamin D 25-OH Total 5 Months E11.65 - Type 2 diabetes mellitus with hyperglycemia AMB Hemoglobin A1c Today Z13.9 - Encounter for screening, unspecified Complete Blood Count Auto Diff 5 Months E11.65 - Type 2 diabetes mellitus with hyperglycemia Free T4 (Free Thyroxine) 5 Months E11.65 - Type 2 diabetes mellitus with hyperglycemia Thyroid Stimulating Hormone 5 Months E11.65 - Type 2 diabetes mellitus with hyperglycemia Creatinine Urine 5 Months E11.65 - Type 2 diabetes mellitus with hyperglycemia Td State Immunization Today Z23 - Encounter for immunization Medications: New tetanus-diphtheria toxoids-Td 0.5 mL IM ONCE 0.5 mL 0RF Z23 - Encounter for immunization Refilled spironolactone 25 mg PO DAILY 90 tabs 2RF 90 days Coding Level of Care Code Est Pt Level 4 (09020) Diagnoses Type 2 diabetes mellitus with hyperglycemia, without long-term current use of insulin E11.65 Diabetes mellitus assisted insulin use: without intermodal owner operator truck driver use Chronic kidney disease (CKD) stage G3a/A1, moderately decreased glomerular filtration rate (GFR) between 45-59 mL/min/1.73 square meter and albuminuria creatinine ratio less than 30 mg/g N18.31 Hypercholesterolemia E78.00 Obesity (BMI 30-39.9) E66.9 Essential hypertension I10 Hypertension type: essential hypertension Generalized anxiety disorder F41.1 Additional Codes PHQ-9 - 66629 - PHQ-9 Billing: ([id number])
== END 2024-02-06 10:15 | disposition home or self-care (01) ==
PROVIDERS: PCP Internal Medicine; Visit Provider Internal Medicine
DX: E11.65 Type 2 diabetes mellitus with hyperglycemia (principal); N18.31 Chronic kidney disease, stage 3a; Z68.30 Body mass index [BMI] 30.0-30.9, adult; Z23 Encounter for immunization; E66.9 Obesity, unspecified; E78.00 Pure hypercholesterolemia, unspecified; I10 Essential (primary) hypertension; F41.1 Generalized anxiety disorder
CPT/HCPCS: 83036; 90471; 90714; 99214

== ENCOUNTER 2024-06-03 09:23 | Outpatient (AMB) | payer MEDICARE, MEDICAID, SELFPAY ==
--- OUTSIDE RECORDS SUMMARY | 2024-06-03 09:26 | XMS_ITS | Patient Health Record ---
Author Organization [facility] Address [address] [place] [address] Care Team Providers Care Multi Spindle Operator Name Role Phone Kalpana Campos MD Primary Care Provider Ashkan Moralez Jr Unavailable ALLERGIES No Known Allergies REASON FOR REFERRAL No Information MEDICATIONS Medication SIG (Take, Route, Frequency, Duration) Notes Start Date End Date Status Sennosides-Docusate Sodium 8.6-50 MG 1 tablet in the evening as needed Orally Once a day for 30 day(s) Active ALPRAZolam 0.25 MG 1 tablet Orally Twic e a day Active MiraLax (colon prep) 17 GM/SCOOP mixed with Gatorade or Crystal Light Orally begin at 5:00 p.m. the day before the procedure for 1 day 11/23/2021 Active Vitamin D3 1000 UNIT 1 capsule Orally On ce a day Active Rosuvastatin Calcium 5 MG 1 tablet Orall y Once a day Active Aspir-81 81 MG 1 tablet Orally Once a day Active Zetia 10 MG 1 tablet Orally Once a day Active Fluticasone Propionate (Inhal) 50 MCG/BLIST 1 puff Inhalation Twice a day Active Cholecalciferol 25 MCG (1000 UT) 1 capsule Orally Once a day for 30 day(s) Active Spironolactone 25 MG 1 tablet Orally Onc e a day Active amLODIPine Besylate 10 MG 1 tablet Orall y Once a day Active IMMUNIZATIONS Vaccine Route Administration Date Status Comme nts Influenza Unknown 03/29/2021 Administered SOCIAL HISTORY Sex Assigned At : Social History Observation Description Sex Assigned At Unknown PROBLEMS Problem Type ICD Code Onset Dates Problem Status W/U Status Risk SNOMED Code Notes Problem Colon cancer screening (Z12.11) Active confirmed 917113359 Problem exterminator (current) use of aspirin (Z79.82) Active confirmed 324917854 Problem Long-term current use of high risk medication other than anticoagulant (Z79.899) Active confirmed 973064054 Problem Slow transit constipation (K59.01) Active confirmed 65658672 Problem Long-term use of aspirin therapy (Z79.82) Active confirmed 951209853 Problem History of adenomatous polyp of colon (Z86.010) Active confirmed History of adenomatous polyp of colon (489017131) PLAN OF TREATMENT Future Test Test Name Order Date COLONOSCOPY 06/29/2016 COLONOSCOPY 11/23/2021 Insurance Providers Payer Name Payer Address Payer Phone Subscriber Number Group Number Insured Name Patient Relationship to Insured Coverage Start Date Coverage End Date MEDICARE OF [place] [address] [place] [id number] JANIS CUETO Self - patient is the insured MEDICAID OF [facility] [address] [place] [phone] [id number] JANIS CUETO Self - patient is the insured MEDICAL (GENERAL) HISTORY Medical History History ICD Code Diabetes mellitus type 2 hypertension elevated cholesterol renal insufficiency colonoscopy 09/15/16, hyperpl astic polyps, and five-year followup due to previous history of tubular adenomas Surgical History Surgery Date(Month/Year)
[2024-06-03 09:40] VITALS: BP 118/72; PULSE 113; O2SAT 94; BMI 30.1
--- NOTE | 2024-06-03 09:40 | HO.NEPHOV_ITS ---
Vital Signs 06/03/24 09:40 Height 5 ft 7 in Weight 192 lb BMI 30.1 BP 118/72 Blood Pressure Location Rt brachial Position Sitting Pulse 113 H Pulse Source Pulse Oximeter Pulse Oximetry (%) 94 Oxygen Delivery Method Room Air Intake Visit Reasons: CKD/ Conf Analytical Tech Required: No Accompanied by: Self / Same As Patient Allergies atorvastatin [Lipitor] Allergy (Unknown, Verified 06/03/24 09:41) Unknown lisinopril Allergy (Unknown, Verified 06/03/24 09:41) Unknown Medication List - Last Reconciled 06/03/24 by Joel Quintana MD alprazolam 0.25 mg PO DAILY PRN amlodipine 10 mg PO DAILY 90 days aspirin (Adult Low Dose Aspirin) 81 mg PO DAILY cane As directed cholecalciferol (vitamin D3) 25 mcg PO DAILY ezetimibe (Zetia) 10 mg PO DAILY 90 days fluticasone propionate 50 mcg/actuation 2 sprays intranasal DAILY PRN rosuvastatin 5 mg PO DAILY sennosides-docusate sodium 8.6-50 mg (Senna Plus) 1 tab-cap PO BID PRN spironolactone 25 mg PO DAILY 90 days HPI Comments Details: 73 year old woman with HTN, obesity and DM with stable renal function Baseline creatinine of 0.9 12/03/2023 Overall she has doing well no new complaints today. She is lost some weight 06/03/24 No new issues Lab work pending [facility] Medical History (Updated 09/21/23 @ 09:43 by Kalpana Campos MD) Adult general medical exam Avulsion fracture of right ankle Ankle pain Hypertension Obesity (BMI 30-39.9) Hypercholesterolemia Chronic kidney disease (CKD) stage G3a/A1, moderately decreased glomerular filtration rate (GFR) between 45-59 mL/min/1.73 square meter and albuminuria creatinine ratio less than 30 mg/g Type 2 diabetes mellitus with hyperglycemia Vitamin D deficiency Surgical History History of colonoscopy History of cataract surgery History of total hysterectomy Family History Father No problems noted. Mother Diabetes Hypertension Stroke Daughter Liver cancer Social History Housing: Apartment Are you a primary day care worker to a significant other at home: No Do you presently have visiting nurse or other home services: No Alcohol intake: never Patient Tobacco Use Status: Never used Tobacco Tobacco use type: Cigarette e-Cigarette/Vaping Use: Never Used Second Hand Smoke Exposure: No service: No Current occupational status: retired Cognitive needs: No Hearing needs: No Vision needs: Yes Physical Exam Vital Signs: Last Vital Signs Pulse 113 H 06/03/24 09:40 BP 118/72 06/03/24 09:40 Pulse Ox 94 06/03/24 09:40 Oxygen Delivery Method Room Air 06/03/24 09:40 BMI result Body Mass Index 30.1 Comfortable Neck supple no JVD. Lungs entry equal no rales. Heart S1-S2 heard no gallop or rub. Abdomen soft nontender. Neuro alert awake oriented. No asterixis. Extremities no edema. Results Reviewed Nephrology Results: Hgb 13.3 g/dl (12.0-16.0) 12/03/23 WBC 4.7 X10*3/uL (4.8-10.8) L 12/03/23 Plt Count 256 X10*3/uL (160-400) 12/03/23 Sodium 139 mmol/L (135-145) 12/03/23 Potassium 4.4 mmol/L (3.3-5.1) 12/03/23 Chloride 107 mmol/L (96-108) 12/03/23 Carbon Dioxide 24 mmol/L (22-29) 12/03/23 BUN 17 mg/dL (9-16) H 12/03/23 Creatinine 1.15 mg/dL (0.5-1.4) 12/03/23 Calcium 10.3 mg/dL (8.4-10.2) H 12/03/23 Urine Protein Negative mg/dL (Neg-Trace) 12/03/23 Urine Creatinine 170.10 mg/dL 12/03/23 Assessment & Plan Assessment & Plan (1) Hypertension: Code(s): I10 - Essential (primary) hypertension Category: Medical Qualifiers: Hypertension type: essential hypertension Qualified Code(s): I10 - Essential (primary) hypertension (2) Chronic kidney disease (CKD) stage G3a/A1, moderately decreased glomerular filtration rate (GFR) between 45-59 mL/min/1.73 square meter and albuminuria creatinine ratio less than 30 mg/g: Code(s): N18.31 - Chronic kidney disease, stage 3a Category: Medical (3) Hypercholesterolemia: Code(s): E78.00 - Pure hypercholesterolemia, unspecified Category: Medical Plan Elderly woman with HTN, DM and Obesity BP is well controlled Renal function is stable with a creatinine of 0.95 Repeat labs ordered today No proteinuria Needs weight loss Continue Spironolactone Avoid nephrotoxins Maintain A1C < 7% no changes were made today Orders: Orders Lipid Panel Today E78.00 - Pure hypercholesterolemia, unspecified, I10 - Essential (primary) hypertension Complete Blood Count no Diff Today E78.00 - Pure hypercholesterolemia, unspecified, I10 - Essential (primary) hypertension Comprehensive Met. Panel Today E78.00 - Pure hypercholesterolemia, unspecified, I10 - Essential (primary) hypertension Coding Level of Care Code Est Pt Level 4 (82175) Diagnoses Essential hypertension I10 Hypertension type: essential hypertension Chronic kidney disease (CKD) stage G3a/A1, moderately decreased glomerular filtration rate (GFR) between 45-59 mL/min/1.73 square meter and albuminuria creatinine ratio less than 30 mg/g N18.31 Hypercholesterolemia E78.00
== END 2024-06-03 09:53 | disposition home or self-care (01) ==
PROVIDERS: PCP Internal Medicine; Visit Provider Internal Medicine Hypertension Specialist
DX: I12.9 Hypertensive chronic kidney disease with stage 1 through stage 4 chronic kidney disease, or unspecified chronic kidney disease (principal); N18.31 Chronic kidney disease, stage 3a; E78.00 Pure hypercholesterolemia, unspecified
CPT/HCPCS: 99214

== ENCOUNTER → 2024-06-03 09:23 | Outpatient (BNVA) | payer MEDICARE, MEDICAID, SELFPAY | PROVIDERS: PCP Internal Medicine; Visit Provider Internal Medicine Hypertension Specialist | DX: I12.9 Hypertensive chronic kidney disease with stage 1 through stage 4 chronic kidney disease, or unspecified chronic kidney disease (principal); E11.65 Type 2 diabetes mellitus with hyperglycemia; N18.31 Chronic kidney disease, stage 3a; E78.00 Pure hypercholesterolemia, unspecified | CPT/HCPCS: 99212 ==

== ENCOUNTER 2024-06-03 09:59 | Outpatient (REF) | payer MEDICARE, MEDICAID, SELFPAY ==
[2024-06-03 11:00] LABS: Hematocrit 40.5 % (37.0-47.0); Hemoglobin 13.3 g/dl (12.0-16.0); Mean Corpuscular HGB Conc 32.8 g/dl (31.0-35.0); Mean Corpuscular Hemoglobin 27.6 pg (27.0-33.0); Mean Platelet Volume 9.6 fL (9.4-12.3); Platelet Count 243 X10*3/uL (160-400); Red Blood Count 4.82 X10*6/uL (4.20-5.50); Red Cell Distribution Width 13.9 % (11.0-16.0)
[2024-06-03 11:11] LABS: Alanine Aminotransferase 17 U/L (0-31); Albumin Level 4.3 g/dL (3.5-5.0); Alkaline Phosphatase 75 U/L (39-117); Anion Gap 10 (12-20); Aspartate Amino Transferase 22 U/L (5-31); Bilirubin Total 0.6 mg/dL (0.0-1.0); Blood Urea Nitrogen 15 mg/dL (9-16); Calcium 9.9 mg/dL (8.4-10.2); Carbon Dioxide 25 mmol/L (22-29); Chloride 107 mmol/L (96-108); Cholesterol 140 mg/dL (<200); Estimated Glomerular Filt Rate 46; Glucose Random 113 mg/dL (60-115); HDL Cholesterol 36 mg/dL (>40); LDL Cholesterol Calculated 86 mg/dL (<100); Sodium 138 mmol/L (135-145); Total Protein 8.3 g/dL (6.5-8.0); Triglycerides 90 mg/dL (<150)
== END 2024-06-03 10:00 | disposition home or self-care (01) ==
LOC: HO.10HDL 09:59
PROVIDERS: Visit Provider Internal Medicine Hypertension Specialist
DX: I10 Essential (primary) hypertension (principal); E78.00 Pure hypercholesterolemia, unspecified
CPT/HCPCS: 36415; 80053; 80061; 85027

== ENCOUNTER 2024-07-17 09:35 | Outpatient (REF) | payer MEDICARE, MEDICAID, SELFPAY ==
[2024-07-17 10:48] LABS: MANUAL DIFF FLAG NO
[2024-07-17 10:50] LABS: Basophils Percent Auto 0.7 % (0-2); Eosinophils Absolute Auto 0.1 X10*3/uL (0.0-0.4); Eosinophils Percent Auto 1.4 % (0-4); Hematocrit 39.7 % (37.0-47.0); Hemoglobin 13.1 g/dl (12.0-16.0); Imm Gran Abs Auto 0.01 X10*3/uL (0.00-0.03); Imm Gran Pct Auto 0.2 % (0.0-0.4); Lymphocytes Absolute Auto 2.2 X10*3/uL (1.2-4.9); Lymphocytes Percent Auto 48.8 % (20-40); Mean Corpuscular Hemoglobin 27.9 pg (27.0-33.0); Mean Corpuscular Volume 84.6 fL (80.0-98.0); Mean Platelet Volume 10.2 fL (9.4-12.3); Monocytes Absolute Auto 0.5 X10*3/uL (0.1-1.2); Monocytes Percent Auto 12.2 % (2-11); Neutrophils Absolute Auto 1.6 x10*3/uL (2.0-8.3); Neutrophils Percent Auto 36.7 % (45-73); Platelet Count 226 X10*3/uL (160-400); Red Blood Count 4.69 X10*6/uL (4.20-5.50); White Blood Count 4.4 X10*3/uL (4.8-10.8)
[2024-07-17 10:59] LABS: Estimated Average Glucose 117 mg/dL; Hemoglobin A1c % 5.7 % (<6.0); Total Hemoglobin (HGBA1C) 3373.4658 umol/L
[2024-07-17 11:08] LABS: Alanine Aminotransferase 13 U/L (0-31); Albumin Level 4.2 g/dL (3.5-5.0); Alkaline Phosphatase 69 U/L (39-117); Anion Gap 9 (12-20); Aspartate Amino Transferase 21 U/L (5-31); Bilirubin Total 0.6 mg/dL (0.0-1.0); Blood Urea Nitrogen 12 mg/dL (9-16); Calcium 9.7 mg/dL (8.4-10.2); Carbon Dioxide 25 mmol/L (22-29); Chloride 111 mmol/L (96-108); Cholesterol 138 mg/dL (<200); Estimated Glomerular Filt Rate > 60; Glucose Random 86 mg/dL (60-115); HDL Cholesterol 41 mg/dL (>40); LDL Cholesterol Calculated 80 mg/dL (<100); Sodium 141 mmol/L (135-145); Total Protein 8.2 g/dL (6.5-8.0); Triglycerides 86 mg/dL (<150)
[2024-07-17 11:21] LABS: Creatinine Urine 287.82 mg/dL
[2024-07-17 11:25] LABS: Free T4 (Free Thyroxine) 0.84 ng/dL (0.71-1.85); Thyroid Stimulating Hormone 1.81 uIU/mL (0.32-4.0); Vitamin D 25-OH Total 28.3 ng/mL (>30)
[2024-07-17 11:37] LABS: Folate 6.1 ng/mL (> or = 4.0); Vitamin B12 451 pg/mL (200-900)
--- OUTSIDE RECORDS SUMMARY | 2024-07-17 12:38 | XMS_ITS | Clinical Summary ---
Author Organization [facility] Address [address] [place] [address] Phone Care Team Providers Care Pension Administrator Name Role Phone Kalpana Campos MD Primary Care Provider [phone] Allergies No known active allergies Medications amLODIPine (NORVASC) 10 MG tablet Take 1 tablet by mouth 1 (one) time each day 3 Active cholecalciferol (VITAMIN D-3) 25 MCG (1000 UT) capsule Take 1 capsule by mouth 1 (one) time each day Active ezetimibe (ZETIA) 10 MG tablet Take 1 tablet by mouth 1 (one) time each day Active fluticasone (FLONASE) 50 MCG/ACT nasal spray Administer 1 spray into each nostril 1 (one) time each day Active pravastatin (PRAVACHOL) 40 MG tablet Take 80 mg by mouth 1 (one) time each day Active spironolactone (ALDACTONE) 25 MG tablet Take 1 tablet by mouth 1 (one) time each day Active SENNA CO by Combination route Active Active Problems Problem Noted Date Diagnosed Date Slow transit constipation 07/17/2022 Screening for malignant neoplasm of colon 2022 Long-term current use of antiplatelet drug 07/17 History of adenomatous polyp of colon 07/17/2022 Chronic kidney disease stage 3 06/03/2021 Hypertensive chronic kidney disease, unspecified, with chronic kidney disease stage I through stage IV, or unspecified 06/03/2021 Immunizations Name Administration Dates Next Due Influenza, Unspecified 03/29/2021 Family History Medical History Relation Comments Hypertension Sibling Relation Status Comments Mother Unknown Sibling Social History Tobacco Use Types Packs/Day Years Used Date Smoking Tobacco: Never Smokeless Tobacco: Never Alcohol Use Standard Drinks/Week Comments Yes 0 (1 standard drink = 0.6 oz pure alcohol) Alcoholic Drinks/day: Occasional social drink Comments Unknown Sex and Gender Information Value Date Recorded Sex Assigned at Not on file Legal Sex Female 5:03 PM EST Gender Identity Not on file Sexual Orientation Not on file Last Filed Vital Signs Vital Sign Reading Time Taken Comments Blood Pressure 127/80 07/17/2022 2:24 PM EST Pulse 86 07/17/2022 2:24 PM EST Temperature - - Respiratory Rate - - Oxygen Saturation 99% 07/17/2022 2:24 PM EST Inhaled Oxygen Concentration - - Weight 91 kg (200 lb 9.6 oz) 07/17/2022 2:24 PM EST Height 162.6 cm (5' 4 ) 05/24/2020 12:00 PM EST Body Mass Index 34.43 05/24/2020 12:00 PM EST Plan of Treatment Health Maintenance Due Date Last Done Comments Breast Cancer Screening 1950 Pneumococcal Vaccine: 65+ Years (1 of 2 - PCV) 1955 Colorectal Cancer Screening: Annual FOBT 1998 Colorectal Cancer Screening: Sigmoidoscopy 1998 Influenza Vaccine (#1) 2024 03/29/2021 Colorectal Cancer Screening: Colonoscopy 12/17/2031 12/16/2021, 12/16/2021 Hepatitis B Vaccine Aged Out No longe r eligible based on patient's age to complete this topic Insurance MEDICARE , [facility] [address] [place] [address] MEDICARE Care Teams Pension Administrator Relationship Specialty Start Date End Date Kalpana Campos MD [address] [place], [place] PCP - General 06/28/20
--- OUTSIDE RECORDS SUMMARY | 2024-07-17 12:38 | XMS_ITS | Patient Health Record ---
Author Organization [facility] Address [address] [place] [address] Care Team Providers Care Independent Driver Name Role Phone Kalpana Campos MD Primary Care Provider Ashkna Moralez Jr Unavailable [phone] ALLERGIES No Known Allergies REASON FOR REFERRAL [...] Problem Colon cancer screening (Z12.11) Active confirmed 752418414 Problem intermediate frame tender (current) use of aspirin (Z79.82) Active confirmed 621135976 Problem Long-term current use of high risk medication other than anticoagulant (Z79.899) Active confirmed 542270441 Problem Slow transit constipation (K59.01) Active confirmed 98332515 Problem Long-term use of aspirin therapy (Z79.82) Active confirmed 991510887 Problem History of adenomatous polyp of colon (Z86.010) Active confirmed History of adenomatous polyp of colon (121189081) PLAN OF TREATMENT Future Test Test Name Order Date COLONOSCOPY 06/29/2016 COLONOSCOPY 11/23/2021 Insurance Providers Payer Name Payer Address Payer Phone Subscriber Number Group Number Insured Name Patient Relationship to Insured Coverage Start Date Coverage End Date MEDICARE OF [place] [address] [place] [id number] JANIS CUETO Self - patient is the insured MEDICAID OF [facility] [address] [place] [phone] [id number] JANIS CUETO Self - patient is the insured MEDICAL (GENERAL) HISTORY Medical History History ICD Code Diabetes mellitus type 2 hypertension elevated cholesterol renal insufficiency colonoscopy 09/15/16, hyperpl astic polyps, and five-year followup due to previous history of tubular adenomas Surgical History Surgery Date(Month/Year)
--- OUTSIDE RECORDS SUMMARY | 2024-07-17 12:38 | XMS_ITS | Clinical Summary ---
Author Organization [employer] Address [address] [place] [address] [address] [place] [address] Care Team Providers Care Psychiatric Registered Nurse Name Role Phone Unavailable Primary Care Provider Unavailabl e Immunizations Name Administration Dates Next Due Influenza High-dose Quadriva lent Preservative Free 03/30/2023 Influenza Quadrivalent Adjuvanted 03/22/2021, Influenza injectable quadriv alent preservative free 03/15/2022 Influenza, High Dose Seasona l, Preservative Free 08/04/2019,06/19/2017,05/18/2016 Influenza, IIV3, injectable 03/29/2021, 5 Influenza, Unspecified 03/29/2021 Pfizer Covid-19 Vaccine 12+ 03/28/2024,0 07/23/2023,10/23/2021,05/21,08/29/2020,08/06/2020 Pfizer Covid-19 Vaccine 12+ Bivalent 07/06/2022 Pfizer Covid-19 Vaccine 12+ danny-sucrose (Henriuqez Cap) 10/23/2021 Pneumococcal Conjugate PCV 13 08/04/2016 Pneumococcal Polysaccharide PPSV23 01/30/2019, RSV Bivalent 03/18/2024 TD (adult), 2 Lf tetanus tox oid, preservative free, adsorbed 02/06/2024 Zoster, Recombinant 04/23/2020,02/22/2018 Social History Tobacco Use Types Packs/Day Years Used Date Smoking Tobacco: Never Assessed Comments Unknown Sex and Gender Information Value Date Recorded Sex Assigned at Female 07/23/2023 9:08 AM EST Legal Sex Female 9:11 AM EST Gender Identity Female 07/23/2023 9:08 AM EST Sexual Orientation Straight 07/23/2023 9: 08 AM EST Plan of Treatment Health Maintenance Due Date Last Done Comments CT Colonography 1949 Colonoscopy 1949 Colorectal Cancer Screening 1949 Depression Screening 1949 FIT DNA/Cologuard 1949 FIT 1949 FOBT 1949 SDOH Screening 1949 Sigmoidoscopy 1949 Alcohol/Substance Use Screening 1961 Tobacco Screening 1961 Hepatitis C Screening 1967 DTaP/Tdap/Td Vaccines (1 - Tdap) 02/07/2024 02/06/2024 Influenza Vaccine (#1) 2024 3, 03/15/2022, 03/29/2021, Additional history exists Pneumococcal Vaccine: 50+ Years Completed 01/30/2019, 11/04/2017, 08/04/2016 Zoster Vaccines Completed 04/23/2020, 02/22/2018 RSV Patients and Patients Aged 60 years or older Completed 03/18/2024 COVID-19 Vaccine Completed 03/28/2024, 10/2023, 07/06/2022, Additional history exists HIB Vaccines Aged Out No longer eligi ble based on patient's age to complete this topic HPV Vaccines Aged Out No longer eligi ble based on patient's age to complete this topic Hepatitis A Vaccines Aged Out No long er eligible based on patient's age to complete this topic Hepatitis B Vaccines Aged Out No long er eligible based on patient's age to complete this topic IPV Vaccines Aged Out No longer eligi ble based on patient's age to complete this topic Meningococcal Vaccine Aged Out No trevin lyndsay eligible based on patient's age to complete this topic RSV under 20 months Aged Out No longe r eligible based on patient's age to complete this topic Rotavirus Vaccines Aged Out No longer eligible based on patient's age to complete this topic Insurance MEDICARE [facility] STANDARD AETNA MEDICARE REPLACEMENT HSN FULL
== END 2024-07-17 09:36 | disposition home or self-care (01) ==
LOC: HO.10HDL 09:35
PROVIDERS: Visit Provider Internal Medicine
DX: E11.65 Type 2 diabetes mellitus with hyperglycemia (principal); E78.00 Pure hypercholesterolemia, unspecified
CPT/HCPCS: 36415; 80053; 80061; 82306; 82570; 82607; 82746; 83036; 84439; 84443; 85025

== ENCOUNTER 2024-07-18 10:36 | Outpatient (AMB) | payer MEDICARE, SELFPAY ==
--- NOTE | 2024-07-18 10:44 | A.OFFVIS_ITS ---
Intake Vital Signs 07/18/24 10:46 Height 5 ft 7 in Weight 191 lb 4 oz BMI 30.0 BP 124/64 Blood Pressure Location Lt brachial Position Sitting Pulse 81 Pulse Source Pulse Oximeter Temp 97.1 F Temp Source Skin Pulse Oximetry (%) 96 Oxygen Delivery Method Room Air Intake Visit Reasons: [facility] Intake Note: Patient is here for an Annual Wellness Visit. Clinical Professor Required: No Animal Maintenance Supervisor: Animal Maintenance Supervisor offered & declined Accompanied by: Self / Same As Patient Allergies atorvastatin [Lipitor] Allergy (Unknown, Verified 07/18/24 10:46) Unknown lisinopril Allergy (Unknown, Verified 07/18/24 10:46) Unknown Medication List - Last Reconciled 07/18/24 by Kalpana Campos MD alprazolam 0.25 mg PO DAILY PRN amlodipine 10 mg PO DAILY 90 days aspirin (Adult Low Dose Aspirin) 81 mg PO DAILY cane As directed cholecalciferol (vitamin D3) 25 mcg PO DAILY ezetimibe (Zetia) 10 mg PO DAILY 90 days rosuvastatin 5 mg PO DAILY sennosides-docusate sodium 8.6-50 mg (Senna Plus) 1 tab-cap PO BID PRN spironolactone 25 mg PO DAILY 90 days HPI SAWV HPI Details 74-year-old obese female with diabetes m ellitus chronic kidney disease hypercholesterolemia hypertension generalized anxiety disorder coming in for an annual well visit last seen in January 2024. Patient's colon test was last done in 01/04/2022 having tubular adenoma, mammogram 02/05/2024. And bone density 02/04/2022. Review of the notes has seen Nephrology in June 03 for hypertension and chronic kidney disease stage IIIA blood pressure under good control renal function is stable advised weight loss continue with spironolactone avoid NSAIDs. Patient is up-to-date with eye exam. 02/05/2024. L ear pain 1 week PFS Medical History (Updated 07/18/24 @ 11:31 by Kalpana Campos MD) Adult general medical exam Avulsion fracture of right ankle Ankle pain Hypertension Obesity (BMI 30-39.9) Hypercholesterolemia Chronic kidney disease (CKD) stage G3a/A1, moderately decreased glomerular filtration rate (GFR) between 45-59 mL/min/1.73 square meter and albuminuria creatinine ratio less than 30 mg/g Type 2 diabetes mellitus with hyperglycemia Vitamin D deficiency Surgical History History of colonoscopy History of cataract surgery History of total hysterectomy Family History Father No problems noted. Mother Diabetes Hypertension Stroke Daughter Liver cancer Social History Housing: Apartment Are you a primary student career development specialist to a significant other at home: No Do you presently have visiting nurse or other home services: No Alcohol intake: never Patient Tobacco Use Status: Never used Tobacco Tobacco use type: Cigarette e-Cigarette/Vaping Use: Never Used Second Hand Smoke Exposure: No service: No Current occupational status: retired Cognitive needs: No Hearing needs: No Vision needs: Yes Questionnaire Medicare Wellness Checkup [age] What gender do you identify with?: female During the past 4 weeks, how much have you been bothered by emotional problems such as feeling anxious, depressed, irritable, sad or downhearted, and blue?: not at all During the past 4 weeks, has your physical & emotional health limited your social activities with family, friends, neighbors, or groups?: not at all During the past 4 weeks, how much bodily pain have you generally had?: very mild pain During the past 4 weeks, was someone available to help you if you needed & wanted help?: no, not at all During the past 4 weeks, what was the hardest physical activity you could do for at least 2 minutes?: moderate Can you get to places out of walking distance without help? (For eg., can you travel alone on buses, taxis or drive your car?): Yes Can you go shopping for groceries or clothes without someone's help?: Yes Can you prepare your own meals?: Yes Can you do your housework without help?: Yes Because of any health problems, do you need the help of another person with your personal care needs such as eating, bathing, dressing or getting around the house?: No Can you handle your own money without help?: Yes During the past 4 weeks, how would you rate your health in general?: excellent During the past 4 weeks how have things been going for you?: very well; could hardly better Are you having difficulties driving your car?: not applicable, I don't use a car Do you always fasten your seat belt when you are in a car?: yes, usually During past 4 weeks, have you been bothered by the following: never: Falling or dizzy when standing up, Sexual problems?, Trouble eating well?, Teeth or denture problems? and Problems using the telephone? and seldom: Tiredness or fatigue? Have you fallen 2 or more times in the past year?: No Are you afraid of falling?: Yes Are you a smoker?: no During the past 4 weeks, how many drinks of wine, beer, or other alcoholic beverages did you have?: 1 drink or less per week Do you exercise for about 20 minutes 3 or more times a week?: no, I usually do not exercise this much Have you been given information to help with the following?: yes: Keeping track of your medications? and no: Hazards in your house that might hurt you? How often do you have trouble taking medicines the way you have been told to take them?: I always take medicine as prescribed How confident are you that you can control & manage most of your health problems?: very confident What is your race?: Black or PHQ-9 Over the last 2 weeks, how often have you been bothered by any of the following problems? 1. Little interest or pleasure in doing things: not at all 2. Feeling down, depressed, or hopeless: not at all 3. Trouble falling or staying asleep, or sleeping too much: not at all 4. Feeling tired or having little energy: not at all 5. Poor appetite or overeating: not at all 6. Feeling bad about yourself - or that you are a failure or have let yourself or your family down: not at all 7. Trouble concentrating on things, such as reading the newspaper or watching television: not at all 8. Moving or speaking so slowly that other people could have noticed. Or the opposite - being so fidgety or restless that you have been moving around a lot more than usual: not at all 9. Thoughts that you would be better off or of hurting yourself in some way: not at all Total score: 0 Depression Screening Interpretation: Negative Depression Screening Done: Yes Source: Developed by Drs. Reji Anaya, Carly Smith, Bandar De La Cruz and colleagues, with an educational inderjit from [email or web address] ([employer]). Thrive Questionnaire Date Thrive assessed: 07/18/24 I am a: Patient What is your living situation today?: I have a steady place to live Within the past 12 months, did the food you bought not last and you didn't have the money to get more?: Never true Within the past 12 months, did you worry whether your food would run out before you got money to buy more?: Never true Do you have trouble paying for medicines?: No Do you have trouble getting transportation to medical appointments?: No Do you have trouble paying your heating and electricity bill?: No Do you have trouble taking care of your child, family member or friend?: No Do you have trouble with day-to-day activities such as bathing, preparing meals, shopping, managing finances, etc.?: No Are you currently unemployed and looking for a job?: No Are you interested in more education?: No Please select the resources that you would like help with: None Currently or been in a relationship where the following occur: No concerns reported THRIVE Score: 0 MAME-7 AMB Questionnaire MAME-7 Date MAME - 7 assessed: 07/18/24 Feeling nervous, anxious, or on edge: 0 = Not at all Not being able to stop or control worryin = Not at all Worrying too much about different things: 0 = Not at all Trouble relaxin = Not at all Being so restless that it is hard to sit still: 0 = Not at all Becoming easily annoyed or irritable: 0 = Not at all Feeling afraid as if something awful might happen: 0 = Not at all Total MAME-7 score (0-4 normal; 5-9 mild; 10-14 moderate; 15-21 severe): 0 Source: Developed by Drs. Reji Anaya, Carly Smith, Bandar De La Cruz and colleagues, with an educational inderjit from [email or web address] ([employer]). AUDIT C Alcohol Use Questionnaire (AUDIT-C) 1. How often do you have a drink containing alcohol?: Monthly or less 2. How many drinks containing alcohol do you have on a typical day when you are drinking?: 1 or 2 Total Score: 1 Review of Systems Const Denies poor appetite and Denies weakness Eyes Denies no additional complaints ENT Reports Normal hearing present, Denies dizziness, Denies nasal congestion, Denies tinnitus and Denies sore throat Card Denies chest pain, Denies syncope, Denies rapid heart rate and Denies dyspnea Resp Denies cough and Denies dyspnea GI Denies change in stool character, Reports constipation, Denies diarrhea, Denies nausea and Denies vomiting Denies urinary frequency, Denies difficulty voiding and Denies dysuria Neuro Reports Normal hearing present, Denies confusion, Denies dizziness, Denies syncope and Denies weakness Psych Denies confusion Physical Exam Vital Signs: Last Vital Signs Temp 97.1 F 07/18/24 10:46 Pulse 81 07/18/24 10:46 BP 124/64 07/18/24 10:46 Pulse Ox 96 07/18/24 10:46 Oxygen Delivery Method Room Air 07/18/24 10:46 BMI result Body Mass Index 30.0 Const General: No confusion Orientation/consciousness: No confusion HEENT Other: impacted cerumen bilateral pedal pulse and pin prick good Head: Yes normocephalic Ears: external ears normal Face and sinus: Yes normal facial exam Mouth: moist mucous membranes Throat: Yes tonsils normal Eyes Conjunctivae: conjunctivae normal Pupils: Equal, round and reactive pupils present and Pupil accommodation reflex normal Direct Ophthalmoscopy: normal light reflex Neck Neck: No lymphadenopathy Thyroid: Thyroid normal Chest Chest palpation & inspection: normal inspection of the chest Resp Effort & Inspection: normal respiratory effort and no audible wheezes Auscultation: clear to auscultation bilaterally, no crackles, no wheezes and lung sounds not diminished Cardio Rate: regular rate Rhythm: regular rhythm Peripheral pulses: radial pulses present and dorsalis pedis present GI Other: declined Palpation (GI): no masses Auscultation: normal bowel sounds and normoactive bowel sounds Rectal Exam - Female: deferred Skin General skin exam: no rashes or lesions noted Rashes: no rashes Neuro General: No confusion Cranial nerves: Yes Equal, round and reactive pupils present and Yes Normal hearing present Cognition (Neuro): normal cognition Gait exam (Neuro): Normal gait present Motor exam (neuro): 5/5 motor strength present throughout Deep tendon reflexes (DTR's): Right brachioradialis reflex intensity grade: 2+, Left brachioradialis reflex intensity grade: 2+, Right patellar reflex intensity grade: 2+ and Left patellar reflex intensity grade: 2+ Extrem General: No edema Office Procedures Flu Questionnaire Does the patient have a severe egg allergy?: No Does the patient have severe life threatening allergies?: No Does the patient have a fever or illness today?: No Has the patient ever had Guillain-[place] Syndrome?: No Has the patient ever had any past reaction to a flu shot?: No Immunizations Fluarix Triv [id number] (PF) 45 mcg (15 mcg x 3)/0.5 mL IM syringe Performing Provider: Kalpana Campos MD [facility] Administered by: ISAIAS Valdivia on 07/18/24 11:39 Dose Route Admin Location Dispensed Lot Number Expiration Date NDC Cleaner Signs 0.5 mL IM Left Deltoid 0.5 mL [id number] 12/15/24 [id number] [employer] VIS Given Date VIS Provided VIS Publication Date 07/18/24 Single Vaccine 21 Eligibility Eligibility Date Funding Source Not [facility] Eligible 07/18/24 Private Assessment & Plan Assessment & Plan (1) Medicare annual wellness visit, subsequent: Code(s): Z00.00 - Encounter for general adult medical examination without abnormal findings Plan: Patient is advised to eat healthy, keep well hydrated, keep active and have adequate sleep. (2) Type 2 diabetes mellitus with hyperglycemia: Comment: Dr. Peterson Code(s): E11.65 - Type 2 diabetes mellitus with hyperglycemia Qualifiers: Diabetes mellitus long-term insulin use: without long-term use Qualified Code(s): E11.65 - Type 2 diabetes mellitus with hyperglycemia Plan: Decrease the amount of carbohydrate intake, pasta, bread, rice and potatoes are all sugar and that is aside from all the sweet stuff, remember that fruits are good but they are Sweet also. Diet controlled (3) Chronic kidney disease (CKD) stage G3a/A1, moderately decreased glomerular filtration rate (GFR) between 45-59 mL/min/1.73 square meter and albuminuria creatinine ratio less than 30 mg/g: Code(s): N18.31 - Chronic kidney disease, stage 3a Plan: Keep well hydrated, avoid NSAIDs (4) Hypercholesterolemia: Code(s): E78.00 - Pure hypercholesterolemia, unspecified Plan: Avoid fried foods, chicken skin, eggs, butter margarine, pastries and meat. Be it pork or beef they have a lot of cholesterol on rosuvastatin 5 once a day (5) Obesity (BMI 30-39.9): Code(s): E66.9 - Obesity, unspecified Plan: Diet and exercise (6) Hypertension: Code(s): I10 - Essential (primary) hypertension Qualifiers: Hypertension type: essential hypertension Qualified Code(s): I10 - Essential (primary) hypertension Plan: Continue with blood pressure medication. Decrease salt intake and exercise (7) Generalized anxiety disorder: Comment: decline counselling 07/2021 Code(s): F41.1 - Generalized anxiety disorder Plan: Stable on alprazolam as needed (8) Impacted cerumen of both ears: Code(s): H61.23 - Impacted cerumen, bilateral Plan: Advised to schedule for irrigation of the ears Orders: Orders Influenza [id number] Immunization Today Z23 - Encounter for immunization Quality Reporting (2019) Depression/Bipolar (159/160/161/177) PHQ-9: Total score: 0 Coding Level of Care Code Medicare Subsequent (G0439) Diagnoses Medicare annual wellness visit, subsequent Z00.00 Type 2 diabetes mellitus with hyperglycemia, without long-term current use of insulin E11.65 Diabetes mellitus termite helper insulin use: without termite helper use Chronic kidney disease (CKD) stage G3a/A1, moderately decreased glomerular filtration rate (GFR) between 45-59 mL/min/1.73 square meter and albuminuria creatinine ratio less than 30 mg/g N18.31 Hypercholesterolemia E78.00 Obesity (BMI 30-39.9) E66.9 Essential hypertension I10 Hypertension type: essential hypertension Generalized anxiety disorder F41.1 Impacted cerumen of both ears H61.23
[2024-07-18 10:46] VITALS: BP 124/64; PULSE 81; TEMP 36.2; O2SAT 96
--- OUTSIDE RECORDS SUMMARY | 2024-07-18 11:19 | XMS_ITS | Clinical Summary ---
Author Organization [facility] Address [address] [place] [address] Phone Care Team Providers Care In Processing Instructor Name Role Phone Kalpana Campos MD Primary Care Provider [phone] Allergies No known active allergies Medications amLODIPine [...] to complete this topic Insurance MEDICARE , [facility] [address] [place] [address] MEDICARE Care Teams In Processing Instructor Relationship Specialty Start Date End Date Kalpana Campos MD [address] [place], [place] PCP - General 06/28/20
--- OUTSIDE RECORDS SUMMARY | 2024-07-18 11:19 | XMS_ITS | Clinical Summary ---
Author Organization [employer] Address [address] [place] [address] [address] [place] [address] Care Team Providers Care Photographic Laboratory Supervisor Name Role Phone Unavailable Primary Care Provider [...] Bivalent 07/06/2022 Pfizer Covid-19 Vaccine 12+ danny-sucrose (Henriquez Cap) 10/23/2021 Pneumococcal Conjugate PCV 13 08/04/2016 [...] age to complete this topic Insurance MEDICARE [facility] STANDARD AETNA MEDICARE REPLACEMENT HSN FULL
== END 2024-07-18 11:40 | disposition home or self-care (01) ==
PROVIDERS: PCP Internal Medicine; Visit Provider Internal Medicine
DX: Z00.00 Encounter for general adult medical examination without abnormal findings (principal); I12.9 Hypertensive chronic kidney disease with stage 1 through stage 4 chronic kidney disease, or unspecified chronic kidney disease; E11.65 Type 2 diabetes mellitus with hyperglycemia; N18.31 Chronic kidney disease, stage 3a; Z68.30 Body mass index [BMI] 30.0-30.9, adult; E66.9 Obesity, unspecified; E78.00 Pure hypercholesterolemia, unspecified; F41.1 Generalized anxiety disorder; H61.23 Impacted cerumen, bilateral; Z23 Encounter for immunization

== ENCOUNTER → 2024-07-18 10:36 | Outpatient (BNVA) | payer MEDICARE, SELFPAY | PROVIDERS: PCP Internal Medicine; Visit Provider Internal Medicine | DX: Z00.00 Encounter for general adult medical examination without abnormal findings (principal); Z23 Encounter for immunization; E11.65 Type 2 diabetes mellitus with hyperglycemia; E78.00 Pure hypercholesterolemia, unspecified; E66.9 Obesity, unspecified; F41.1 Generalized anxiety disorder; I12.9 Hypertensive chronic kidney disease with stage 1 through stage 4 chronic kidney disease, or unspecified chronic kidney disease; N18.31 Chronic kidney disease, stage 3a; H61.23 Impacted cerumen, bilateral | CPT/HCPCS: 90471; 90656 ==

== ENCOUNTER 2024-08-01 11:19 | Outpatient (AMB) | payer MEDICARE, SELFPAY ==
[2024-08-01 11:20] VITALS: BP 130/70; PULSE 96; O2SAT 96; BMI 30.1
--- NOTE | 2024-08-01 11:20 | MHC.PC.OV ---
Vital Signs 08/01/24 11:20 Height 5 ft 7 in Weight 192 lb BMI 30.1 BP 130/70 Blood Pressure Location Lt brachial Position Sitting Pulse 96 Pulse Source Pulse Oximeter Pulse Oximetry (%) 96 Oxygen Delivery Method Room Air Intake Visit Reasons: ear irrigation Allergies atorvastatin [Lipitor] Allergy (Unknown, Verified 08/01/24 11:23) Unknown lisinopril Allergy (Unknown, Verified 08/01/24 11:23) Unknown Tobacco use date assessed: 08/01/24 Fall risk assessment: No Falls in past year Last assessed Fall Risk: 08/01/24 Dental Screening Dental Screen Date: 08/01/24 Did you have a dental visit in the last 12 months?: No Did you have a dental problem in the last 6 months where you did not have access to dental care?: No Was dental information given to patient?: Patient has dentist HPI ear irrigation HPI Details 74-year-old female with past medical history of chronic kidney disease, diabetes mellitus, hypercholesterolemia, hypertension, obesity, generalized anxiety disorder last seen 06/[address] Campos coming in for ear cleaning. [facility] Medical History Adult general medical exam Avulsion fracture of right ankle Ankle pain Hypertension Obesity (BMI 30-39.9) Hypercholesterolemia Chronic kidney disease (CKD) stage G3a/A1, moderately decreased glomerular filtration rate (GFR) between 45-59 mL/min/1.73 square meter and albuminuria creatinine ratio less than 30 mg/g Type 2 diabetes mellitus with hyperglycemia Vitamin D deficiency Surgical History History of colonoscopy History of cataract surgery History of total hysterectomy Family History Father No problems noted. Mother Diabetes Hypertension Stroke Daughter Liver cancer Social History Housing: Apartment Are you a primary residential care facility manager to a significant other at home: No Do you presently have visiting nurse or other home services: No Alcohol intake: never Patient Tobacco Use Status: Never used Tobacco Tobacco use type: Cigarette e-Cigarette/Vaping Use: Never Used Second Hand Smoke Exposure: No service: No Current occupational status: retired Cognitive needs: No Hearing needs: No Vision needs: Yes Questionnaire PHQ-9 Over the last 2 weeks, how often have you been bothered by any of the following problems? 1. Little interest or pleasure in doing things: not at all 2. Feeling down, depressed, or hopeless: not at all 3. Trouble falling or staying asleep, or sleeping too much: not at all 4. Feeling tired or having little energy: not at all 5. Poor appetite or overeating: not at all 6. Feeling bad about yourself - or that you are a failure or have let yourself or your family down: not at all 7. Trouble concentrating on things, such as reading the newspaper or watching television: not at all 8. Moving or speaking so slowly that other people could have noticed. Or the opposite - being so fidgety or restless that you have been moving around a lot more than usual: not at all 9. Thoughts that you would be better off or of hurting yourself in some way: not at all Total score: 0 Depression Screening Interpretation: Negative Depression Screening Done: Yes Source: Developed by Drs. Reji Anaya, Carly Smith, Bandar De La Cruz and colleagues, with an educational inderjit from [employer]. Thrive Questionnaire Date Thrive assessed: 07/18/24 I am a: Patient What is your living situation today?: I have a steady place to live Within the past 12 months, did the food you bought not last and you didn't have the money to get more?: Never true Within the past 12 months, did you worry whether your food would run out before you got money to buy more?: Never true Do you have trouble paying for medicines?: No Do you have trouble getting transportation to medical appointments?: No Do you have trouble paying your heating and electricity bill?: No Do you have trouble taking care of your child, family member or friend?: No Do you have trouble with day-to-day activities such as bathing, preparing meals, shopping, managing finances, etc.?: No Are you currently unemployed and looking for a job?: No Are you interested in more education?: No Please select the resources that you would like help with: None Currently or been in a relationship where the following occur: No concerns reported THRIVE Score: 0 AUDIT C Alcohol Use Questionnaire (AUDIT-C) 1. How often do you have a drink containing alcohol?: Monthly or less 2. How many drinks containing alcohol do you have on a typical day when you are drinking?: 1 or 2 3. How often do you have six or more drinks on one occasion?: Never Total Score: 1 MAME-7 AMB Questionnaire MAME-7 Date MAME - 7 assessed: 08/01/24 Feeling nervous, anxious, or on edge: 0 = Not at all Not being able to stop or control worryin = Not at all Worrying too much about different things: 0 = Not at all Trouble relaxin = Not at all Being so restless that it is hard to sit still: 0 = Not at all Becoming easily annoyed or irritable: 0 = Not at all Feeling afraid as if something awful might happen: 0 = Not at all Total MAME-7 score (0-4 normal; 5-9 mild; 10-14 moderate; 15-21 severe): 0 Source: Developed by Drs. Reji Anaya, Carly Smith, Bandar De La Cruz and colleagues, with an educational inderjit from [employer]. Review of Systems Const Denies body aches, Denies chills and Denies fever(s) Eyes Reports no additional complaints ENT Details: Ear clogged feeling and decreased hearing bilaterally Card Reports no additional complaints Resp Reports no additional complaints GI Reports no additional complaints Physical exam (Primary Care) Vital Signs: Last Vital Signs Pulse 96 08/01/24 11:20 BP 130/70 08/01/24 11:20 Pulse Ox 96 08/01/24 11:20 Oxygen Delivery Method Room Air 08/01/24 11:20 BMI result Body Mass Index 30.1 Tobacco/Smoking Status: Tobacco use Status Tobacco use date assessed 09/21/23 08/01/24 11:20 Patient Tobacco Use Status Never used Tobacco 08/01/24 11:20 Tobacco use type Cigarette 08/01/24 11:20 e-Cigarette/Vaping Use Never Used 08/01/24 11:20 Depression Screening Interpretation: Negative Thrive Assessment: Date of Thrive Assessment Date Thrive assessed 07/18/24 08/01/24 11:20 Currently or been in a relationship where the following occur: No concerns reported Const General: cooperative, healthy appearing, comfortable and no acute distress Orientation/consciousness: patient oriented x3 HENMT Head: Yes normocephalic Ears: hearing grossly normal bilaterally and Abnormal EAC present cerumen impaction bilateral General nose exam: Normal external nose present Neck Neck: Yes full ROM and Yes no lymphadenopathy Resp Effort & Inspection: normal respiratory effort Cardio Rate: regular rate Neuro General: patient oriented x3 Gait exam (Neuro): Normal gait present Psych Affect: normal affect Attitude: cooperative Insight: Good insight present (Psych) Judgement: Good judgement present (Psych) Office Procedures Cerumen Removal From which ear canal was the cerumen removed: bilateral Removal: otoscope w/curette and cerumen loop/spoon Notes: patient tolerated procedure well, no complications and ear canal clear 40342-[id number] Wax Removal by Spoon/Curette Coding Level of Care Code Procedure Only Diagnoses Impacted cerumen of both ears H61.23 CPT Codes Office Procedure - CPT: 31641-Apz Wax Removal by Spoon/Curette ([id number]) Assessment & Plan Assessment & Plan (1) Impacted cerumen of both ears: Code(s): H61.23 - Impacted cerumen, bilateral Category: Medical Plan: Bilateral ears were cleaned using lighted curette. EACs were clear and TMs visualized as intact with well aerated middle ear spaces. Patient tolerated procedure well advised to follow up as needed for this concern. Plan This note was constructed using voice recognition software. While every effort has been made to ensure accuracy and school bus monitor, still areas may have been included sometimes these areas may affect the content or meeting of the given symptoms. Total time spent caring for the patient today was 20 minutes. This includes time spent before the visit reviewing the chart, time spent during the visit, and time spent after the visit and documentation.
--- OUTSIDE RECORDS SUMMARY | 2024-08-01 12:11 | XMS_ITS | Patient Health Record ---
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) use of aspirin (Z79.82) Active confirmed 880723287 Problem Long-term current use of high risk medication other than anticoagulant (Z79.899) Active confirmed 692862385 Problem Slow transit constipation (K59.01) Active confirmed 74436648 Problem Long-term use of aspirin therapy (Z79.82) Active confirmed 624777491 Problem History of adenomatous polyp of colon (Z86.010) Active confirmed History of adenomatous polyp of colon (556826103) PLAN OF TREATMENT Future Test Test Name Order Date COLONOSCOPY 06/29/2016 COLONOSCOPY 11/23/2021 Insurance Providers Payer Name Payer Address Payer Phone Subscriber Number Group Number Insured Name Patient Relationship to Insured Coverage Start Date Coverage End Date MEDICARE OF [place] [address] [place] [id number] JANIS CUETO Self - patient is the insured MEDICAID OF [facility] [address] [place] [phone] [id number] JANIS CUETO Self - patient is the insured MEDICAL (GENERAL) HISTORY Medical History History ICD Code Diabetes mellitus type 2 hypertension elevated cholesterol renal insufficiency colonoscopy 09/15/16, hyperpl astic polyps, and five-year followup due to previous history of tubular adenomas Surgical History Surgery Date(Month/Year)
--- OUTSIDE RECORDS SUMMARY | 2024-08-01 12:11 | XMS_ITS | Clinical Summary ---
Author Organization [facility] Address [address] [place] [address] Phone Care Team Providers Care Stove Tender Name Role Phone Kalpana Campos MD Primary Care Provider [phone] Allergies No known active allergies Medications amLODIPine [...] to complete this topic Insurance MEDICARE , [facility] [address] [place] [address] MEDICARE Care Teams Stove Tender Relationship Specialty Start Date End Date Kalpana Campos MD [address] [place], [place] PCP - General 06/28/20
--- OUTSIDE RECORDS SUMMARY | 2024-08-01 12:11 | XMS_ITS | Clinical Summary ---
Author Organization [employer] Address [address] [place] [address] [address] [place] [address] Care Team Providers Care Faculty Administrator Name Role Phone Unavailable Primary Care Provider [...] age to complete this topic Insurance MEDICARE [facility] STANDARD [employer] MEDICARE REPLACEMENT HSN FULL
== END 2024-08-01 11:37 | disposition home or self-care (01) ==
PROVIDERS: PCP Internal Medicine
DX: H61.23 Impacted cerumen, bilateral (principal)

== ENCOUNTER → 2024-08-01 11:19 | Outpatient (BNVA) | payer MEDICARE, SELFPAY | PROVIDERS: PCP Internal Medicine | DX: H61.23 Impacted cerumen, bilateral (principal) | CPT/HCPCS: 69210; 99212 ==

== ENCOUNTER 2024-10-02 09:57 | Outpatient (AMB) | payer MEDICARE, MEDICAID, SELFPAY ==
[2024-10-02 09:58] VITALS: BP 120/72; PULSE 79; O2SAT 98
--- NOTE | 2024-10-02 09:58 | HO.NEPHOV ---
Vital Signs 10/02/24 09:58 Height 5 ft 7 in Weight 191 lb 4 oz BMI 30.0 BP 120/72 Blood Pressure Location Lt brachial Position Sitting Pulse 79 Pulse Source Pulse Oximeter Pulse Oximetry (%) 98 Oxygen Delivery Method Room Air Intake Visit Reasons: CKD/Conf Company Laundry Worker Required: No Accompanied by: Self / Same As Patient Allergies atorvastatin [Lipitor] Allergy (Unknown, Verified 10/02/24 10:00) Unknown lisinopril Allergy (Unknown, Verified 10/02/24 10:00) Unknown Do you need a note to return to daycare/school/sports/work: No HPI Comments Details: 73 year old woman with HTN, obesity and DM with stable renal function Baseline creatinine of 0.9 12/03/2023 Overall she has doing well no new complaints today. She is lost some weight 06/03/24 No new issues [facility] Medical History Adult general medical exam Avulsion fracture of right ankle Ankle pain Hypertension Obesity (BMI 30-39.9) Hypercholesterolemia Chronic kidney disease (CKD) stage G3a/A1, moderately decreased glomerular filtration rate (GFR) between 45-59 mL/min/1.73 square meter and albuminuria creatinine ratio less than 30 mg/g Type 2 diabetes mellitus with hyperglycemia Vitamin D deficiency Surgical History History of colonoscopy History of cataract surgery History of total hysterectomy Family History Father No problems noted. Mother Diabetes Hypertension Stroke Daughter Liver cancer Social History Housing: Apartment Are you a primary direct support professional caregiver to a significant other at home: No Do you presently have visiting nurse or other home services: No Alcohol intake: never Patient Tobacco Use Status: Never used Tobacco Tobacco use type: Cigarette e-Cigarette/Vaping Use: Never Used Second Hand Smoke Exposure: No service: No Current occupational status: retired Cognitive needs: No Hearing needs: No Vision needs: Yes Physical Exam Vital Signs: Last Vital Signs Pulse 79 10/02/24 09:58 BP 120/72 10/02/24 09:58 Pulse Ox 98 10/02/24 09:58 Oxygen Delivery Method Room Air 10/02/24 09:58 BMI result Body Mass Index 30.0 Comfortable Neck supple no JVD. Lungs entry equal no rales. Heart S1-S2 heard no gallop or rub. Abdomen soft nontender. Neuro alert awake oriented. No asterixis. Extremities no edema. Results Reviewed Nephrology Results: Hgb 13.1 g/dl (12.0-16.0) 07/17/24 WBC 4.4 X10*3/uL (4.8-10.8) L 07/17/24 Plt Count 226 X10*3/uL (160-400) 07/17/24 Sodium 141 mmol/L (135-145) 07/17/24 Potassium 4.0 mmol/L (3.3-5.1) 07/17/24 Chloride 111 mmol/L (96-108) H 07/17/24 Carbon Dioxide 25 mmol/L (22-29) 07/17/24 BUN 12 mg/dL (9-16) 07/17/24 Creatinine 0.87 mg/dL (0.5-1.4) 07/17/24 Calcium 9.7 mg/dL (8.4-10.2) 07/17/24 Urine Creatinine 287.82 mg/dL 07/17/24 Assessment & Plan Assessment & Plan (1) Hypertension: Code(s): I10 - Essential (primary) hypertension Category: Medical Qualifiers: Hypertension type: essential hypertension Qualified Code(s): I10 - Essential (primary) hypertension (2) Chronic kidney disease (CKD) stage G3a/A1, moderately decreased glomerular filtration rate (GFR) between 45-59 mL/min/1.73 square meter and albuminuria creatinine ratio less than 30 mg/g: Code(s): N18.31 - Chronic kidney disease, stage 3a Category: Medical (3) Hypercholesterolemia: Code(s): E78.00 - Pure hypercholesterolemia, unspecified Category: Medical Plan Elderly woman with HTN, DM and Obesity BP is well controlled Renal function is stable with a creatinine of 0.95 Repeat labs ordered today No proteinuria Needs weight loss Continue Spironolactone Avoid nephrotoxins Maintain A1C < 7% no changes were made today Coding Level of Care Code Est Pt Level 4 (43859) Diagnoses Essential hypertension I10 Hypertension type: essential hypertension Chronic kidney disease (CKD) stage G3a/A1, moderately decreased glomerular filtration rate (GFR) between 45-59 mL/min/1.73 square meter and albuminuria creatinine ratio less than 30 mg/g N18.31 Hypercholesterolemia E78.00
--- OUTSIDE RECORDS SUMMARY | 2024-10-02 11:33 | XMS_ITS | Clinical Summary ---
Author Organization [facility] Address [address] [place] [address] Phone Care Team Providers Care Extractor Operator Name Role Phone Kalpana Campos MD Primary Care Provider [phone] Allergies No known active allergies Medications amLODIPine [...] through stage IV, or unspecified 06/03/2021 Immunizations Immunization Administration Dates Next Due Influenza, Unspecified 03/29/2021 [...] Comments Breast Cancer Screening 1950 Pneumococcal Vaccine: 50+ Years (1 of 2 - PCV) 02/27/1968 Colorectal Cancer Screening: Annual FOBT 1998 Colorectal Cancer Screening: Sigmoidoscopy 1998 Influenza Vaccine (Season Ended) 2025 03/29/2021 Colorectal Cancer Screening: Colonoscopy 12/17/2031 12/16/2021, 12/16/2021 Hepatitis B Vaccine Aged Out No longe r eligible based on patient's age to complete this topic Insurance Medicare , [facility] [address] [place] [address] Medicare Care Teams Extractor Operator Relationship Specialty Start Date End Date Kalpana Campos MD [address] [place], [place] PCP - General 06/28/20
--- OUTSIDE RECORDS SUMMARY | 2024-10-02 11:33 | XMS_ITS | Patient Health Record ---
Author Organization [facility] Address [address] [place] [address] Care Team Providers Care Motor Boss Name Role Phone Kalpana Campos MD Primary Care Provider Ashkan Moralez Jr Unavailable Allergies No Known Allergies Reason For Referral No Information Medications Medication SIG (Take, Route, Frequency, Duration) Notes [...] tablet Orall y Once a day Active Immunizations Vaccine Route Administration Date Status Comme nts Influenza Unknown 03/29/2021 Administered Problems Problem Type SNOMED Code ICD Code Onset Dates Problem Status W/U Status Risk Notes Problem 199734766 Colon cancer screening (Z12.11) Active confirmed Problem History of adenomatous polyp of colon (669917363) History of adenomatous polyp of colon (Z86.010) Active confirmed Problem 40336630 Slow transit constipation (K59.01) Active confirmed Problem 923160820 intermediate teacher (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) use of aspirin (Z79.82) Active confirmed Problem 561622525 Long-term use of aspirin therapy (Z79.82) Active confirmed Problem 191573141 Long-term curren t use of high risk medication other than anticoagulant (Z79.899) Active confirmed Plan Of Treatment Future Test Test Name Order Date COLONOSCOPY 06/29/2016 COLONOSCOPY 11/23/2021 Insurance Providers Payer Name Payer Address Payer Phone Subscriber Number Group Number Insured Name Patient Relationship to Insured Coverage Start Date Coverage End Date MEDICARE OF [place] [address] [place] [id number] JANIS CUETO Self - patient is the insured MEDICAID OF [facility] [address] [place] [address] [id number] JANIS CUETO Self - patient is the insured Medical (General) History Medical History History ICD Code Diabetes mellitus type 2 hypertension elevated cholesterol renal insufficiency colonoscopy 09/15/16, hyperpl astic polyps, and five-year followup due to previous history of tubular adenomas Surgical History Surgery Date(Month/Year)
--- OUTSIDE RECORDS SUMMARY | 2024-10-02 11:34 | XMS_ITS | Clinical Summary ---
Author Organization [employer] Address [address] [place] [address] [address] [place] [address] Care Team Providers Care Manager Ent Name Role Phone Unavailable Primary Care Provider [...] age to complete this topic Insurance MEDICARE [facility] STANDARD [employer] MEDICARE REPLACEMENT HSN FULL
== END 2024-10-02 10:07 | disposition home or self-care (01) ==
LOC: HO.HKA 09:57
PROVIDERS: PCP Internal Medicine; Visit Provider Internal Medicine Hypertension Specialist
DX: I10 Essential (primary) hypertension (principal); N18.31 Chronic kidney disease, stage 3a; E78.00 Pure hypercholesterolemia, unspecified
CPT/HCPCS: 99214

== ENCOUNTER → 2024-10-02 09:57 | Outpatient (BNVA) | payer MEDICARE, MEDICAID, SELFPAY | PROVIDERS: PCP Internal Medicine; Visit Provider Internal Medicine Hypertension Specialist | DX: I12.9 Hypertensive chronic kidney disease with stage 1 through stage 4 chronic kidney disease, or unspecified chronic kidney disease (principal); N18.31 Chronic kidney disease, stage 3a; E78.00 Pure hypercholesterolemia, unspecified | CPT/HCPCS: 99212 ==

== ENCOUNTER 2025-01-14 10:57 | Outpatient (AMB) | payer MEDICARE, SELFPAY ==
[2025-01-14 11:00] VITALS: BP 134/80; PULSE 99; RESP 18; TEMP 36.2; O2SAT 96; BMI 28.9
--- NOTE | 2025-01-14 11:00 | A.OFFPC_ITS ---
Vital Signs 01/14/25 11:00 Height 5 ft 7 in Weight 184 lb 4 oz BMI 28.9 BP 134/80 Blood Pressure Location Lt brachial Position Sitting Respiration 18 Pulse 99 Pulse Source Pulse Oximeter Temp 97.1 F Temp Source Temporal Artery Scan Pulse Oximetry (%) 96 Oxygen Delivery Method Room Air Intake Visit Reasons: 6 month f/u Allergies atorvastatin (Lipitor) Allergy (Unknown, Verified 01/14/25 11:01) Unknown lisinopril Allergy (Unknown, Verified 01/14/25 11:01) Unknown Tobacco use date assessed: 01/14/25 Fall risk assessment: No Falls in past year Last assessed Fall Risk: 01/14/25 Dental Screening Dental Screen Date: 08/01/24 Did you have a dental visit in the last 12 months?: No Did you have a dental problem in the last 6 months where you did not have access to dental care?: No Was dental information given to patient?: Patient has dentist [facility] Medical History Adult general medical exam Avulsion fracture of right ankle Ankle pain Hypertension Obesity (BMI 30-39.9) Hypercholesterolemia Chronic kidney disease (CKD) stage G3a/A1, moderately decreased glomerular filtration rate (GFR) between 45-59 mL/min/1.73 square meter and albuminuria creatinine ratio less than 30 mg/g Type 2 diabetes mellitus with hyperglycemia Vitamin D deficiency Surgical History History of colonoscopy History of cataract surgery History of total hysterectomy Family History Father No problems noted. Mother Diabetes Hypertension Stroke Daughter Liver cancer Social History Housing: Apartment Are you a primary critical care unit manager to a significant other at home: No Do you presently have visiting nurse or other home services: No Alcohol intake: never Patient Tobacco Use Status: Never used Tobacco Tobacco use type: Cigarette e-Cigarette/Vaping Use: Never Used Second Hand Smoke Exposure: No service: No Current occupational status: retired Cognitive needs: No Hearing needs: No Vision needs: Yes Questionnaire PHQ-9 Over the last 2 weeks, how often have you been bothered by any of the following problems? 1. Little interest or pleasure in doing things: not at all 2. Feeling down, depressed, or hopeless: several days 3. Trouble falling or staying asleep, or sleeping too much: not at all 4. Feeling tired or having little energy: several days 5. Poor appetite or overeating: not at all 6. Feeling bad about yourself - or that you are a failure or have let yourself or your family down: not at all 7. Trouble concentrating on things, such as reading the newspaper or watching television: not at all 8. Moving or speaking so slowly that other people could have noticed. Or the opposite - being so fidgety or restless that you have been moving around a lot more than usual: not at all 9. Thoughts that you would be better off or of hurting yourself in some way: not at all Total score: 2 Source: Developed by Drs. Reji Anaya, Carly Smith, Bandar De La Cruz and colleagues, with an educational inderjit from [employer]. Thrive Questionnaire Date Thrive assessed: 07/18/24 I am a: Patient What is your living situation today?: I have a steady place to live Within the past 12 months, did the food you bought not last and you didn't have the money to get more?: Sometimes True Within the past 12 months, did you worry whether your food would run out before you got money to buy more?: Sometimes True Do you have trouble paying for medicines?: No Do you have trouble getting transportation to medical appointments?: No Do you have trouble paying your heating and electricity bill?: No Do you have trouble taking care of your child, family member or friend?: No Do you have trouble with day-to-day activities such as bathing, preparing meals, shopping, managing finances, etc.?: No Are you currently unemployed and looking for a job?: No Are you interested in more education?: No Please select the resources that you would like help with: None Currently or been in a relationship where the following occur: No concerns reported THRIVE Score: 2 AUDIT C Alcohol Use Questionnaire (AUDIT-C) 1. How often do you have a drink containing alcohol?: 2-4 times a month 2. How many drinks containing alcohol do you have on a typical day when you are drinking?: 1 or 2 3. How often do you have six or more drinks on one occasion?: Never Total Score: 2 MAME-7 AMB Questionnaire MAME-7 Date MAEM - 7 assessed: 08/01/24 Feeling nervous, anxious, or on edge: 0 = Not at all Not being able to stop or control worryin = Several days Worrying too much about different things: 0 = Not at all Trouble relaxin = Several days Being so restless that it is hard to sit still: 1 = Several days Becoming easily annoyed or irritable: 2 = More than half the days Feeling afraid as if something awful might happen: 0 = Not at all Total MAME-7 score (0-4 normal; 5-9 mild; 10-14 moderate; 15-21 severe): 5 Source: Developed by Drs. Reji Anaya, Carly Smith, Bandar De La Cruz and colleagues, with an educational inderjit from [employer]. Physical exam (Primary Care) Vital Signs: Last Vital Signs Temp 97.1 F 01/14/25 11:00 Pulse 99 01/14/25 11:00 Resp 18 01/14/25 11:00 BP 134/80 01/14/25 11:00 Pulse Ox 96 01/14/25 11:00 Oxygen Delivery Method Room Air 01/14/25 11:00 BMI result Body Mass Index 28.9 Tobacco/Smoking Status: Tobacco use Status Tobacco use date assessed 01/14/25 01/14/25 11:01 Patient Tobacco Use Status Never used Tobacco 01/14/25 11:01 Tobacco use type Cigarette 01/14/25 11:01 e-Cigarette/Vaping Use Never Used 01/14/25 11:01 PHQ-9: PHQ-9 Score PHQ-9: Total score 2 01/14/25 11:35 Thrive Assessment: Date of Thrive Assessment Date Thrive assessed 07/18/24 01/14/25 11:01 Currently or been in a relationship where the following occur: No concerns reported Const General: alert; No acute distress Eyes Conjunctivae: conjunctivae normal Resp Auscultation: clear to auscultation bilaterally Cardio Rate: regular rate Rhythm: regular rhythm GI Inspection: Yes normal to inspection Extrem General: Yes normal to inspection and No edema Results AMB Hemoglobin A1c AMB Hemoglobin A1c 6.0 % Last Edit by Brittni Norton CMA on 01/14/25 11:12 Results Reviewed Results Reviewed: Laboratory Last Values Hgb A1c (Clinic) 6.0 % (4.0-6.0) 01/14/25 11:08 Coding Level of Care Code Est Pt Level 4 (15203) Complex EM visit Add On G2211 Diagnoses Type 2 diabetes mellitus with hyperglycemia, without long-term current use of insulin E11.65 Diabetes mellitus watermaster insulin use: without watermaster use Essential hypertension I10 Hypertension type: essential hypertension Hypercholesterolemia E78.00 Chronic kidney disease (CKD) stage G3a/A1, moderately decreased glomerular filtration rate (GFR) between 45-59 mL/min/1.73 square meter and albuminuria creatinine ratio less than 30 mg/g N18.31 Generalized anxiety disorder F41.1 Assessment & Plan Assessment & Plan (1) Type 2 diabetes mellitus with hyperglycemia: Comment: Dr. Peterson Code(s): E11.65 - Type 2 diabetes mellitus with hyperglycemia Category: Medical Qualifiers: Diabetes mellitus watermaster insulin use: without watermaster use Qualified Code(s): E11.65 - Type 2 diabetes mellitus with hyperglycemia Plan: Decrease the amount of carbohydrate intake, pasta, bread, rice and potatoes are all sugar and that is aside from all the sweet stuff, remember that fruits are good but they are Sweet also. Hemoglobin A1c goal of less than 7.0 patient is diet controlled (2) Hypertension: Code(s): I10 - Essential (primary) hypertension Category: Medical Qualifiers: Hypertension type: essential hypertension Qualified Code(s): I10 - Essential (primary) hypertension Plan: Continue with blood pressure medication. Decrease salt intake and exercise patient is on amlodipine 10 mg once a day spironolactone patient is not able to tolerate lisinopril (3) Hypercholesterolemia: Code(s): E78.00 - Pure hypercholesterolemia, unspecified Category: Medical Plan: Avoid fried foods, chicken skin, eggs, butter margarine, pastries and meat. Be it pork or beef they have a lot of cholesterol LDL goal of less than 100 and triglyceride of less than 150 on rosuvastatin 5 mg once a day and Zetia 10 mg once a day (4) Chronic kidney disease (CKD) stage G3a/A1, moderately decreased glomerular filtration rate (GFR) between 45-59 mL/min/1.73 square meter and albuminuria creatinine ratio less than 30 mg/g: Code(s): N18.31 - Chronic kidney disease, stage 3a Category: Medical Plan: Patient follows up with Nephrology, renal function is stable (5) Generalized anxiety disorder: Comment: decline counselling 07/2021 Code(s): F41.1 - Generalized anxiety disorder Category: Medical Plan: Stable Plan History of Present Illness The patient is a 74-year-old female presenting for a follow-up visit for chronic conditions management. The patient has a history of diabetes mellitus with a recent hemoglobin A1c of 6.0, indicating tight control of her blood glucose levels. She has been advised to maintain her A1c below 7.0. The patient also has chronic kidney disease and hypertension, for which she is under nephrology care. Her renal function is stable, and she is currently on spironolactone and amlodipine for blood pressure management. She has experienced issues with lisinopril, which she cannot tolerate. Hypercholesterolemia is managed with rosuvastatin and Xeria, with a target LDL cholesterol of less than 100 mg/dL. Her recent LDL cholesterol was 80 mg/dL, indicating good control. The patient has a history of anxiety disorder and is overweight, although she has recently lost 7 pounds through increased physical activity such as walking. She ensures adequate hydration and avoids walking in the heat. Preventative care measures include a colon cancer screening in 2021, an up-to-date mammogram as of January 2024, and a pending bone density screening. She has received her shingles and RSV vaccinations. Health Maintenance - Colon cancer screening completed in 2021 - Mammogram up to date as of January 2024 - Bone density screening due - Shingles vaccination received - RSV vaccination received Social History - Exercise: Engages in walking for physical activity - Hydration: Ensures adequate water intake Review of Systems - General: Reports weight loss of 7 pounds - Endocrine: Denies symptoms of hyperglycemia Physical Exam - Cardiovascular: Heart auscultation performed - Respiratory: Lung auscultation performed Results - Labs: Hemoglobin A1c 6.0, LDL cholesterol 80 mg/dL, mild leukopenia, normal blood count, normal electrolytes, stable renal function, low vitamin D Plan The patient will continue to manage diabetes mellitus with a goal to maintain hemoglobin A1c below 7.0, currently at 6.0, indicating good control. She is advised to maintain her current regimen and lifestyle modifications, including regular physical activity and adequate hydration. For hypertension and chronic kidney disease, the patient will continue on spironolactone and amlodipine, with regular follow-ups with nephrology to monitor renal function, which is currently stable. Lisinopril has been discontinued due to intolerance. Hypercholesterolemia management includes rosuvastatin and Xeria, with a target LDL cholesterol of less than 100 mg/dL, currently at 80 mg/dL. The patient is encouraged to continue her current medication regimen. Preventative care includes scheduling a bone density screening and maintaining up-to-date vaccinations, including shingles and RSV. Patient was informed and verbally consented to the use of an ambient scribe for clinic note documentation during this visit. Discussion Notes I discussed with the patient the importance of maintaining her hemoglobin A1c below 7.0 and the current good control at 6.0. We reviewed her hypertension and chronic kidney disease management, emphasizing the continuation of spironolactone and amlodipine, and the need for regular nephrology follow-ups. I advised discontinuing lisinopril due to intolerance. We also discussed her hypercholesterolemia management with rosuvastatin and Xeria, and the importance of maintaining her LDL cholesterol below 100 mg/dL. Preventative care measures were reviewed, including the need for a bone density screening and ensuring vaccinations are up to date. Patient Instructions - Continue current diabetes management and aim to keep A1c below 7.0. - Maintain regular physical activity and stay hydrated. - Continue spironolactone and amlodipine for blood pressure management. - Discontinue lisinopril due to intolerance. - Continue rosuvastatin and Xeria for cholesterol management. - Schedule a bone density screening. - Ensure vaccinations are up to date, including shingles and RSV. Orders: Orders Complete Blood Count Auto Diff 5 Months E78.00 - Pure hypercholesterolemia, unspecified Comprehensive Met. Panel 5 Months E78.00 - Pure hypercholesterolemia, unspecified Hemoglobin A1c 5 Months E78.00 - Pure hypercholesterolemia, unspecified Free T4 (Free Thyroxine) 5 Months E78.00 - Pure hypercholesterolemia, unspecified Thyroid Stimulating Hormone 5 Months E78.00 - Pure hypercholesterolemia, unspecified Lipid Panel 5 Months E78.00 - Pure hypercholesterolemia, unspecified Vitamin B12 and Folate 5 Months E78.00 - Pure hypercholesterolemia, unspecified AMB Hemoglobin A1c Today Z13.9 - Encounter for screening, unspecified Vitamin D 25-OH Total 5 Months E78.00 - Pure hypercholesterolemia, unspecified Microalbumin, Random (w Creat) 5 Months E11.65 - Type 2 diabetes mellitus with hyperglycemia, E78.00 - Pure hypercholesterolemia, unspecified Creatinine Urine 5 Months E11.65 - Type 2 diabetes mellitus with hyperglycemia, E78.00 - Pure hypercholesterolemia, unspecified
--- OUTSIDE RECORDS SUMMARY | 2025-01-14 12:02 | XMS_ITS | Clinical Summary ---
Author Organization [facility] Address [address] [place] [address] Phone Care Team Providers Care Cone Picker Name Role Phone Kalpana Campos MD Primary Care Provider [phone] Allergies No known active allergies Medications amLODIPine [...] Cancer Screening: Sigmoidoscopy 1998 Influenza Vaccine (#1) 2025 03/29/2021 Colorectal Cancer Screening: Colonoscopy 12/17/2031 12/16/2021, 12/16/2021 Hepatitis B Vaccine Aged Out No longe r eligible based on patient's age to complete this topic Insurance Medicare , [facility] [address] [place] [address] Medicare Care Teams Cone Picker Relationship Specialty Start Date End Date Kalpana Campos MD [address] [place], [place] PCP - General 06/28/20
--- OUTSIDE RECORDS SUMMARY | 2025-01-14 12:02 | XMS_ITS | Patient Health Record ---
Author Organization [facility] Address [address] [place] [address] Care Team Providers Care Warning Coordination Meteorologist Name Role Phone Kalpana Campos MD Primary Care Provider Ashkan Moralez Jr Unavailable [phone] Allergies No Known Allergies Reason For Referral [...] Problem Status W/U Status Risk Notes Problem 418641839 Colon cancer screening (Z12.11) Active confirmed Problem History of adenomatous polyp of colon (Z86.010) Active confirmed Problem 97836293 Slow transit constipation (K59.01) Active confirmed Problem 959847973 supervisor intermediates (current) use of aspirin (Z79.82) Active confirmed Problem 381561868 Long-term use of aspirin therapy (Z79.82) Active confirmed Problem 811401525 Long-term curren t use of high risk medication other than anticoagulant (Z79.899) Active confirmed Plan Of Treatment Future Test Test Name Order Date COLONOSCOPY 06/29/2016 COLONOSCOPY 11/23/2021 Insurance Providers Payer Name Payer Address Payer Phone Subscriber Number Group Number Insured Name Patient Relationship to Insured Coverage Start Date Coverage End Date MEDICARE OF [place] [address] [place] [id number] JANIS CUETO Self - patient is the insured MEDICAID OF [facility] [address] [place] [address] [id number] JANIS CUETO Self - patient is the insured Medical (General) History Medical History History ICD Code Diabetes mellitus type 2 hypertension elevated cholesterol renal insufficiency colonoscopy 09/15/16, hyperpl astic polyps, and five-year followup due to previous history of tubular adenomas Surgical History Surgery Date(Month/Year)
--- OUTSIDE RECORDS SUMMARY | 2025-01-14 12:02 | XMS_ITS | Clinical Summary ---
Author Organization [facility] Address [address] [place] [address] Care Team Providers Care Damper Maker Name Role Phone Unavailable Primary Care Provider Unavailabl e Immunizations Immunization Administration Dates Next Due Influenza High-dose Quadriva [...] DTaP/Tdap/Td Vaccines (1 - Tdap) 02/07/2024 02/06/2024 COVID-19 Vaccine (2023- season) 2024 03/28/2024, 07/23/2023, 07/06/2022, Additional history exists Influenza Vaccine (#1) 2025 , 03/15/2022, 03/29/2021, Additional history exists Pneumococcal Vaccine: 50+ Years Completed 01/30/2019, 11/04/2017, 08/04/2016 Zoster Vaccines Completed 04/23/2020, 02/22/2018 RSV Patients and Patients Aged 60 years or older Completed 03/18/2024 HIB Vaccines Aged Out No longer eligi [...] patient's age to complete this topic Meningococcal B Vaccine Aged Out No l onger eligible based on patient's age to complete this topic Meningococcal Vaccine Aged Out No trevin lyndsay eligible based on patient's age to complete this topic RSV under 20 months Aged Out No longe r eligible based on patient's age to complete this topic Rotavirus Vaccines Aged Out No longer eligible based on patient's age to complete this topic Insurance MEDICARE [facility] STANDARD [employer] MEDICARE REPLACEMENT HSN FULL
== END 2025-01-14 11:40 | disposition home or self-care (01) ==
LOC: HO.HMCH 10:57
PROVIDERS: PCP Internal Medicine; Visit Provider Internal Medicine
DX: E11.65 Type 2 diabetes mellitus with hyperglycemia (principal); I10 Essential (primary) hypertension; E78.00 Pure hypercholesterolemia, unspecified; N18.31 Chronic kidney disease, stage 3a; F41.1 Generalized anxiety disorder; Z13.9 Encounter for screening, unspecified

== ENCOUNTER → 2025-01-14 10:57 | Outpatient (BNVA) | payer MEDICARE, SELFPAY | PROVIDERS: PCP Internal Medicine; Visit Provider Internal Medicine | DX: E11.65 Type 2 diabetes mellitus with hyperglycemia (principal); E11.22 Type 2 diabetes mellitus with diabetic chronic kidney disease; I12.9 Hypertensive chronic kidney disease with stage 1 through stage 4 chronic kidney disease, or unspecified chronic kidney disease; E78.00 Pure hypercholesterolemia, unspecified; N18.31 Chronic kidney disease, stage 3a; F41.1 Generalized anxiety disorder; E66.3 Overweight; Z68.28 Body mass index [BMI] 28.0-28.9, adult | CPT/HCPCS: 83036; 96127; 99212 ==

== ENCOUNTER 2025-02-10 09:05 | Outpatient (REF) | payer MEDICARE, SELFPAY ==
--- OUTSIDE RECORDS SUMMARY | 2025-02-10 09:27 | XMS_ITS | Clinical Summary ---
Author Organization [facility] Address [address] [facility] [place] [address] Care Team Providers Care Dry Chain Worker Name Role Phone Unavailable Primary Care Provider [...] age to complete this topic Insurance MEDICARE [facility] STANDARD AETNA MEDICARE REPLACEMENT HSN FULL
--- OUTSIDE RECORDS SUMMARY | 2025-02-10 09:27 | XMS_ITS | Clinical Summary ---
Author Organization [facility] Address [address] [place] [address] Phone Care Team Providers Care Client Administrator Name Role Phone Kalpana Campos MD Primary Care Provider [phone] Allergies No known active allergies Medications amLODIPine [...] to complete this topic Insurance Medicare , [facility] [address] [place] [address] Medicare Care Teams Client Administrator Relationship Specialty Start Date End Date Kalpana Campos MD [address] [place], [place] PCP - General 06/28/20
--- OUTSIDE RECORDS SUMMARY | 2025-02-10 09:27 | XMS_ITS | Patient Health Record ---
Author Organization [facility] Address [address] [place] [address] Care Team Providers Care Bung Dropper Name Role Phone Kalpana Campos MD Primary [...] Problem Status W/U Status Risk Notes Problem [id number] Colon cancer screening (Z12.11) Active confirmed Problem History of adenomatous polyp of colon (Z86.010) Active confirmed Problem 82065887 Slow transit constipation (K59.01) Active confirmed Problem 784972775 half-way (current) use of aspirin (Z79.82) Active confirmed Problem 710016274 Long-term use of aspirin therapy (Z79.82) Active confirmed Problem 737819910 Long-term curren t use of high risk medication other than anticoagulant (Z79.899) Active confirmed Plan Of Treatment Future Test Test Name Order Date COLONOSCOPY 06/29/2016 COLONOSCOPY 11/23/2021 Insurance Providers Payer Name Payer Address Payer Phone Subscriber Number Group Number Insured Name Patient Relationship to Insured Coverage Start Date Coverage End Date MEDICARE OF [place] [address] [place] [id number] [phone] [id number] JANIS CUETO Self - patient is the insured MEDICAID OF [facility] [address] [place] [address] [id number] JANIS CUETO Self - patient is the insured Medical (General) History Medical History History ICD Code Diabetes mellitus type 2 hypertension elevated cholesterol renal insufficiency colonoscopy 09/15/16, hyperpl astic polyps, and five-year followup due to previous history of tubular adenomas Surgical History Surgery Date(Month/Year)
== END 2025-02-10 09:06 | disposition home or self-care (01) ==
LOC: HO.MAMMO 09:05
PROVIDERS: PCP Internal Medicine; Visit Provider Internal Medicine
DX: Z12.31 Encounter for screening mammogram for malignant neoplasm of breast (principal)
CPT/HCPCS: 77063; 77067

== ENCOUNTER → 2025-02-10 09:30 | Outpatient (BNV) | payer MEDICARE, SELFPAY | PROVIDERS: PCP Internal Medicine; Visit Provider Radiology Body Imaging | DX: Z12.31 Encounter for screening mammogram for malignant neoplasm of breast (principal) | CPT/HCPCS: 77063; 77067 ==

== ENCOUNTER 2025-03-26 09:35 | Outpatient (AMB) | payer MEDICARE, MEDICAID, SELFPAY ==
--- NOTE | 2025-03-26 10:02 | HO.NEPHOV ---
Vital Signs 03/26/25 10:03 Height 5 ft 7 in BP 130/82 Blood Pressure Location Lt brachial Position Sitting Pulse 74 Pulse Source Pulse Oximeter Pulse Oximetry (%) 98 Oxygen Delivery Method Room Air Intake Visit Reasons: 6 MO FU confirmed Material Controller Required: No Accompanied by: Self / Same As Patient Allergies atorvastatin (Lipitor) Allergy (Unknown, Verified 03/26/25 10:05) Unknown lisinopril Allergy (Unknown, Verified 03/26/25 10:05) Unknown Medication List - Last Reconciled 03/26/25 by Joel Quintana MD alprazolam 0.25 mg PO DAILY PRN amlodipine 10 mg PO DAILY 90 days aspirin (Adult Low Dose Aspirin) 81 mg PO DAILY cane As directed cholecalciferol (vitamin D3) 25 mcg PO DAILY ezetimibe (Zetia) 10 mg PO DAILY 90 days rosuvastatin 5 mg PO DAILY sennosides-docusate sodium 8.6-50 mg (Senna Plus) 1 tab-cap PO BID PRN spironolactone 25 mg PO DAILY 90 days HPI Comments Details: 73 year old woman with HTN, obesity and DM with stable renal function Baseline creatinine of 0.9 12/03/2023 Overall she has doing well no new complaints today. She is lost some weight 06/03/24;No new issues 03/26/25 - The patient is a 75-year-old female presenting with hypertension management - Hypertension: BP 130/82 mmHg, controlled with amlodipine and spironolactone. - Kidney function: Stable, no recent labs since June. - Leg swelling: Due to fall, occasional, not severe. - Exercise: Walks in warmer months, less in winter. [facility] Medical History Adult general medical exam Avulsion fracture of right ankle Ankle pain Hypertension Obesity (BMI 30-39.9) Hypercholesterolemia Chronic kidney disease (CKD) stage G3a/A1, moderately decreased glomerular filtration rate (GFR) between 45-59 mL/min/1.73 square meter and albuminuria creatinine ratio less than 30 mg/g Type 2 diabetes mellitus with hyperglycemia Vitamin D deficiency Surgical History History of colonoscopy History of cataract surgery History of total hysterectomy Family History Father No problems noted. Mother Diabetes Hypertension Stroke Daughter Liver cancer Social History Housing: Apartment Are you a primary director of managed care to a significant other at home: No Do you presently have visiting nurse or other home services: No Alcohol intake: never Patient Tobacco Use Status: Never used Tobacco Tobacco use type: Cigarette e-Cigarette/Vaping Use: Never Used Second Hand Smoke Exposure: No service: No Current occupational status: retired Cognitive needs: No Hearing needs: No Vision needs: Yes Physical Exam Vital Signs: Last Vital Signs Pulse 74 03/26/25 10:03 BP 130/82 03/26/25 10:03 Pulse Ox 98 03/26/25 10:03 Oxygen Delivery Method Room Air 03/26/25 10:03 Comfortable Neck supple no JVD. Lungs entry equal no rales. Heart S1-S2 heard no gallop or rub. Abdomen soft nontender. Neuro alert awake oriented. No asterixis. Extremities no edema. Assessment & Plan Assessment & Plan (1) Hypertension: Code(s): I10 - Essential (primary) hypertension Category: Medical Qualifiers: Hypertension type: essential hypertension Qualified Code(s): I10 - Essential (primary) hypertension (2) Chronic kidney disease (CKD) stage G3a/A1, moderately decreased glomerular filtration rate (GFR) between 45-59 mL/min/1.73 square meter and albuminuria creatinine ratio less than 30 mg/g: Code(s): N18.31 - Chronic kidney disease, stage 3a Category: Medical (3) Hypercholesterolemia: Code(s): E78.00 - Pure hypercholesterolemia, unspecified Category: Medical Plan Elderly woman with HTN, DM and Obesity BP is well controlled Renal function is stable with a creatinine of 0.95 No proteinuria Needs weight loss Continue Spironolactone Avoid nephrotoxins Maintain A1C < 7% no changes were made today Coding Level of Care Code Est Pt Level 4 (07215) Diagnoses Essential hypertension I10 Hypertension type: essential hypertension Chronic kidney disease (CKD) stage G3a/A1, moderately decreased glomerular filtration rate (GFR) between 45-59 mL/min/1.73 square meter and albuminuria creatinine ratio less than 30 mg/g N18.31 Hypercholesterolemia E78.00
[2025-03-26 10:03] VITALS: BP 130/82; PULSE 74; O2SAT 98
== END 2025-03-26 10:13 | disposition home or self-care (01) ==
LOC: HO.HKA 09:36
PROVIDERS: PCP Internal Medicine; Visit Provider Internal Medicine Hypertension Specialist
DX: I10 Essential (primary) hypertension (principal); N18.31 Chronic kidney disease, stage 3a; E78.00 Pure hypercholesterolemia, unspecified
CPT/HCPCS: 99214

== ENCOUNTER → 2025-03-26 09:35 | Outpatient (BNVA) | payer MEDICARE, MEDICAID, SELFPAY | PROVIDERS: PCP Internal Medicine; Visit Provider Internal Medicine Hypertension Specialist | DX: E11.22 Type 2 diabetes mellitus with diabetic chronic kidney disease (principal); I12.9 Hypertensive chronic kidney disease with stage 1 through stage 4 chronic kidney disease, or unspecified chronic kidney disease; N18.31 Chronic kidney disease, stage 3a; E78.00 Pure hypercholesterolemia, unspecified | CPT/HCPCS: 99212 ==